=== PATIENT | female | born 1950 | race Caucasian/White ===

== ENCOUNTER 2017-08-05 20:25 | Emergency (ER) | payer MEDICARE, OTHER ==
[~2017-08-05] VITALS: Ht 157.5 cm; Wt 76.6 kg
[~2017-08-05 20:25] MED LIST: CLOP75TA PO; DIPH2.5T14 PO; GLIP1TAB49 PO; HYDR500C2 PO; LANTUS2P; PERC5TAB12 PO; PLAV75TA29 PO; ZOFR4TAB PO
[2017-08-05 20:31] VITALS: BP 124/58; PULSE 86; RESP 16; TEMP 98.6; O2SAT 99
[2017-08-05] MEDS ORDERED: METF500T PO (21:16)
[2017-08-05] MEDS ORDERED: XARE10TA PO (21:16)
[2017-08-05] MEDS ORDERED: oxyCODONE/ACETAMINOPHEN 5 MG/325 MG TAB PO ONE (21:30)
--- NOTE | 2017-08-05 21:43 | RADRPT ---
EXAM DATE/TIME: 08/05/2017 21:19 [facility] COMPARISON: No previous studies available for comparison. INDICATIONS : Fall. Right shoulder pain. Limited motion. MEDICAL HISTORY : None. SURGICAL HISTORY : None. ENCOUNTER: Initial ACUITY: 1 day PAIN SCORE: 7/10 LOCATION: Right scapular FINDINGS: Multiple view examination of the right shoulder demonstrates no evidence of fracture or dislocation. The glenohumeral and acromioclavicular joints are maintained. There is normal range of motion betwe en internal and external rotation. Bony mineralization is normal. CONCLUSION: No acute disease. Kd Butler MD on August 05, 2017 at 21:40 Board Certified Radiologist. This report was verified electronically.
[2017-08-05] MEDS ORDERED: PERC5TAB12 PO (22:04)
--- NOTE | 2017-08-05 22:05 | PD ---
HPI Chief Complaint: Back/ Neck Pain or Injury Time Seen by Provider: 21:03 Travel History International Travel<30 days: No Contact w/Intl Traveler<30days: No Traveled to known affect area: No History of Present Illness HPI 67 yo F c/o R shoulder pain, chronic in nature, no recent injury/excessive use. orthopedic surgery has been suggested. timing constant. severity moderate. no numbness/tingling weakness. PFSH Past Medical History Hx Anticoagulant Therapy: Yes (XARELTO) Arthritis: Yes Asthma: Yes Anxiety: Yes Depression: Yes Heart Rhythm Problems: No Cancer: No Cardiac Catheterization: No Cardiovascular Problems: Yes High Cholesterol: No Chemotherapy: Yes (CHEMO PILLS) Congestive Heart Failure: No Cerebrovascular Accident: Yes (TIA) Diabetes: Yes Patient Takes Glucophage: No Diminished Hearing: No Endocrine: No Gastrointestinal Disorders: No Genitourinary: No Hypertension: Yes Immune Disorder: No Implanted Vascular Access Dvce: No Musculoskeletal: Yes Psychiatric: No Reproductive: No Respiratory: Yes (ASTHMA) Pneumonia: Yes Tetanus Vaccination: > 5 Years Influenza Vaccination: No Menopausal: Yes : 6 Para: 4 Miscarriage: 2 Tubal Ligation: Yes Past Surgical History Abdominal Surgery: Yes (HERNIA REPAIR) Appendectomy: Yes Cholecystectomy: Yes Coronary Artery Bypass Graft: No Genitourinary Surgery: Yes (bladder "pulled up") Gynecologic Surgery: Yes (BLADDER LIFT) Hysterectomy: Yes (partial) Neurologic Surgery: Yes (BRAIN SHUNT FOR 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 BRAIN PER DAUGHTER) Other Surgery: Yes (hernia) Social History Alcohol Use: No Tobacco Use: No Substance Use: No Allergies-Medications (Allergen,Severity, Reaction): Coded Allergies: aspirin (Unverified Allergy, Severe, Nausea/Vomiting, 08/05/17) Reported Meds & Prescriptions Reported Meds & Active Scripts Active Reported Metformin (Metformin HCl) 500 Mg Tab 500 Mg PO BIDPC Xarelto (Rivaroxaban) 10 Mg Tab 10 Mg PO DAILY Plavix (Clopidogrel Bisulfate) 75 Mg Tab 75 Mg PO DAILY Lantus Inj (Insulin Glargine) 100 Unit/Ml Inj 85 DAILY Glipizide ER (Glipizide) 5 Mg Silviano 5 Mg PO DAILY Take with breakfast or first main meal of the day. Review of Systems General / Constitutional: No: Fever Neurologic: No: Weakness, Sensory Disturbance Physical Exam Narrative GENERAL: 67 yo F, WNWD, NAD SKIN: Warm and dry. HEAD: Atraumatic. Normocephalic. EYES: Pupils equal and round. No scleral icterus. No injection or drainage. MUSCULOSKELETAL: Extremities without clubbing, cyanosis, or edema. No obvious deformities. No focal tenderness about the R shoulder. 2+ radial artery pulse bilaterally. Normal passive/active ROM. NEUROLOGICAL: Awake and alert. No obvious cranial nerve deficits. Motor grossly within normal limits. Five out of 5 muscle strength in the arms and legs. Normal speech. PSYCHIATRIC: Appropriate mood and affect; insight and judgment normal. Data Data Last Documented VS Vital Signs Date Time Temp Pulse Resp B/P (MAP) Pulse Ox O2 Delivery O2 Flow Rate FiO2 08/05/17 20:31 98.6 86 16 124/58 (80) 99 VS reviewed Orders Orders ^ Sling (08/05/17 21:13) Shoulder, Complete (>2vws) (08/05/17 ) Oxycodone-Acetamin 5-325 Mg (Percocet (08/05/17 21:30) MDM Medical Decision Making Medical Screen Exam Complete: Yes Emergency Medical Condition: Yes Medical Record Reviewed: Yes Differential Diagnosis septic arthritis, gout, DJD, dislocation, rotator cuff injury Narrative Course R shoulder xray: normal Prior visits for shoulder pain observed. Nonspecific R shoulder pain. Pain controlled here. Sling. Follow up with ortho. Diagnosis Primary Impression: Shoulder pain Qualified Codes: M25.511 - Pain in right shoulder; G89.29 - Other chronic pain Referrals: Gui Guadarrama Jr., MD 2 days Additional Instructions: You have a choice when it comes to health care, and we are glad that you chose [facility]. Hopefully, we have met your expectations on today's visit. You are welcome to return to [facility] at any time, as we are committed to meeting the health care needs of our community. Med/Other Pt SpecificInfo: Prescription(s) given Scripts Oxycodone-Acetaminophen (Percocet) 5-325 mg Tab 1-2 TAB PO Q6H Y for PAIN SCALE 6 TO 10, #20 TAB 0 Refills Prov: Jay Valdes MD 08/05/17 Disposition: 01 DISCHARGE HOME Condition: Stable Jay Valdes MD Aug 05, 2017 22:05
== END 2017-08-05 22:19 | disposition home or self-care (01) ==
LOC: PHED 20:25 → PHEFT 22:19
DX: M25.511 Pain in right shoulder (principal); G89.29 Other chronic pain; J45.909 Unspecified asthma, uncomplicated; F41.9 Anxiety disorder, unspecified; F32.9 Major depressive disorder, single episode, unspecified; Z86.73 Personal history of transient ischemic attack (TIA), and cerebral infarction without residual deficits; E11.9 Type 2 diabetes mellitus without complications; I10 Essential (primary) hypertension; Z79.4 Long term (current) use of insulin; Z79.899 Other long term (current) drug therapy; Z79.01 Long term (current) use of anticoagulants
CPT/HCPCS: 73030; 99283

== ENCOUNTER 2017-08-10 09:56 | Emergency (ER) | payer MEDICARE, MEDICAID ==
[~2017-08-10] VITALS: Ht 157.5 cm; Wt 78.0 kg
[~2017-08-10 09:56] MED LIST changes: -CLOP75TA PO; -DIPH2.5T14 PO; -HYDR500C2 PO; +METF500T PO; +XARE10TA PO; -ZOFR4TAB PO
[2017-08-10 09:59] VITALS: BP 144/82; PULSE 87; RESP 15; TEMP 97.7; O2SAT 96
[2017-08-10] MEDS ORDERED: DILT31TA PO (10:21)
[2017-08-10] MEDS ORDERED: FLEC1TAB8 PO (10:22)
--- NOTE | 2017-08-10 11:23 | PD ---
HPI Chief Complaint: Respiratory Symptoms Time Seen by Provider: 11:12 Travel History International Travel<30 days: No Contact w/Intl Traveler<30days: No Traveled to known affect area: No History of Present Illness HPI This patient complains of shortness of breath. She has history of asthma but been wheezing and short of breath for 3 days. Severity is moderate. She denies chest pain or productive cough or fever. No alleviating factors. She does have nebulizer at home but she did not try to use it today. No alleviating factors. She quit smoking 30 years ago. PFSH Past Medical History Hx Anticoagulant Therapy: Yes (XARELTO) Arthritis: Yes Asthma: Yes Anxiety: Yes Depression: Yes Heart Rhythm Problems: No Cancer: No Cardiac Catheterization: No Cardiovascular Problems: Yes High Cholesterol: No Chemotherapy: Yes (CHEMO PILLS) Congestive Heart Failure: No Cerebrovascular Accident: Yes (TIA) Diabetes: Yes Patient Takes Glucophage: Yes Diminished Hearing: No Endocrine: No Gastrointestinal Disorders: No Genitourinary: No Heparin Induced Thrombocytopen: No Hypertension: Yes Immune Disorder: No Implanted Vascular Access Dvce: No Musculoskeletal: Yes Psychiatric: No Reproductive: No Respiratory: Yes (ASTHMA) Pneumonia: Yes ?: Not Menopausal: Yes : 6 Para: 4 Miscarriage: 2 Tubal Ligation: Yes Past Surgical History Abdominal Surgery: Yes (HERNIA REPAIR) Appendectomy: Yes Cholecystectomy: Yes Coronary Artery Bypass Graft: No Genitourinary Surgery: Yes (bladder "pulled up") Gynecologic Surgery: Yes (BLADDER LIFT) Hysterectomy: Yes (partial) Neurologic Surgery: Yes (BRAIN SHUNT FOR 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 BRAIN PER DAUGHTER) Other Surgery: Yes (hernia) Family History Family Myocardial Infarction: Yes (FATHER AT AGE 58 OF [place] ) Social History Alcohol Use: No Tobacco Use: No Substance Use: No Allergies-Medications (Allergen,Severity, Reaction): Coded Allergies: aspirin (Unverified Allergy, Severe, Nausea/Vomiting, 08/05/17) Reported Meds & Prescriptions Reported Meds & Active Scripts Active Prednisone 20 Mg Tab 40 Mg PO DIRECTED Percocet (Oxycodone-Acetaminophen) 5-325 mg Tab 1-2 Tab PO Q6H PRN Reported Flecainide (Flecainide Acetate) 50 Mg Tab 50 Mg PO BID Cardizem (Diltiazem HCl) 30 Mg Tab 30 Mg PO BID Metformin (Metformin HCl) 500 Mg Tab 500 Mg PO BIDPC Xarelto (Rivaroxaban) 10 Mg Tab 10 Mg PO DAILY Plavix (Clopidogrel Bisulfate) 75 Mg Tab 75 Mg PO DAILY Lantus Inj (Insulin Glargine) 100 Unit/Ml Inj 85 DAILY Glipizide ER (Glipizide) 5 Mg Silviano 5 Mg PO DAILY Take with breakfast or first main meal of the day. Review of Systems General / Constitutional: No: Fever Eyes: No: Visual changes HENT: No: Headaches Cardiovascular: No: Chest Pain or Discomfort Respiratory: Positive: Shortness of Breath, Wheezing Gastrointestinal: No: Abdominal Pain Genitourinary: No: Dysuria Musculoskeletal: No: Pain Skin: No Rash Neurologic: No: Weakness Psychiatric: No: Depression Endocrine: No: Polydipsia Hematologic/Lymphatic: No: Easy Bruising Physical Exam Narrative GENERAL: Well-nourished, well-developed patient with some dyspnea . SKIN: Focused skin assessment reveals no rash and nodules. Skin is Warm and dry. HEAD: Atraumatic. Normocephalic. EYES: Pupils equal and round. No scleral icterus. No injection or drainage. ENT: No nasal bleeding or discharge. Mucous membranes pink and moist. NECK: Trachea midline. No JVD. CARDIOVASCULAR: Regular rate and rhythm. No murmur appreciated. RESPIRATORY: No accessory muscle use. Diffuse expiratory wheezing. Breath sounds equal bilaterally. GASTROINTESTINAL: Abdomen soft, non-tender, nondistended. Hepatic and splenic margins not palpable. MUSCULOSKELETAL: No obvious deformities. No clubbing. No cyanosis. No edema. NEUROLOGICAL: Awake and alert. No obvious cranial nerve deficits. Motor grossly within normal limits. Normal speech. PSYCHIATRIC: Appropriate mood and affect; insight and judgment normal. Data Data Last Documented VS Vital Signs Date Time Temp Pulse Resp B/P (MAP) Pulse Ox O2 Delivery O2 Flow Rate FiO2 08/10/17 11:45 100 Nasal Cannula 2.00 08/10/17 11:39 18 08/10/17 10:13 82 08/10/17 09:59 97.7 Orders Orders Complete Blood Count With Diff (08/10/17 11:17) Influenzae A/B Antigen (08/10/17 11:17) Iv Access Insert/Monitor (08/10/17 11:17) Ecg Monitoring (08/10/17 11:17) Oximetry (08/10/17 11:17) Chest, Single Ap (08/10/17 11:17) Sodium Chloride 0.9% Flush (Ns Flush) (08/10/17 11:30) Methylprednisolone So Succ Inj (Solumedr (08/10/17 11:30) Albuterol-Ipratropium Neb (Duoneb Neb) (08/10/17 11:30) Labs Laboratory Tests Test 08/10/17 11:30 White Blood Count 4.8 TH/MM3 Red Blood Count 3.12 MIL/MM3 Hemoglobin 10.6 GM/DL Hematocrit 32.2 % Mean Corpuscular Volume 103.4 FL Mean Corpuscular Hemoglobin 34.0 PG Mean Corpuscular Hemoglobin Concent 32.9 % Red Cell Distribution Width 17.9 % Platelet Count 484 TH/MM3 Mean Platelet Volume 9.4 FL Neutrophils (%) (Auto) 71.1 % Lymphocytes (%) (Auto) 14.9 % Monocytes (%) (Auto) 10.0 % Eosinophils (%) (Auto) 3.5 % Basophils (%) (Auto) 0.5 % Neutrophils # (Auto) 3.4 TH/MM3 Lymphocytes # (Auto) 0.7 TH/MM3 Monocytes # (Auto) 0.5 TH/MM3 Eosinophils # (Auto) 0.2 TH/MM3 Basophils # (Auto) 0.0 TH/MM3 CBC Comment AUTO DIFF MDM Medical Decision Making Medical Screen Exam Complete: Yes Emergency Medical Condition: Yes Medical Record Reviewed: Yes Differential Diagnosis Asthma, COPD, bronchitis Narrative Course I have reviewed the patient's electronic medical record. IV placed CBC shows minor anemia otherwise normal I reviewed her chest x-ray is negative for consolidation or pneumothorax I gave her series of 3 nebulizer treatments I gave her IV Solu-Medrol On reassessment she is clinically improved. There is less wheezing and saturations are at 100% Accu-Chek 224 She is an insulin-dependent diabetic She is aware she may need to increase her insulin or more closely watch her sugars for the next 5 days while on steroid but for her lung function this will be necessary Diagnosis Primary Impression: Asthma exacerbation Qualified Codes: J45.41 - Moderate persistent asthma with (acute) exacerbation Additional Impression: Hyperglycemia Additional Instructions: The patient was advised to follow up with their physician and return if they worsen. Check sugar frequently while on prednisone Med/Other Pt SpecificInfo: Prescription(s) given Scripts Prednisone (Prednisone) 20 Mg Tab 40 MG PO DIRECTED, #10 TAB 0 Refills Prov: Sheldon Zuñiga MD 08/10/17 Disposition: 01 DISCHARGE HOME Condition: Stable Sheldon Zuñiga MD Aug 10, 2017 11:23
[2017-08-10] MEDS ORDERED: SODIUM CHLORIDE 0.9% FLUSH 10 ML FLUSH IVF PRN (11:30)
[2017-08-10] MEDS ORDERED: methylPREDNISolone SOD SUCC 125 MG/2 ML VIAL IV PUSH ONE (11:30)
[2017-08-10 11:39] VITALS: RESP 18; O2SAT 98
[2017-08-10] MEDS: RESP: ALBUTEROL 2.5 MG/IPRATROPIUM 0.5 MG NEB (SCH) INH ×2 (11:44→11:45)
[2017-08-10 11:45] VITALS: O2SAT 100
[2017-08-10 11:54] LABS: AUTOMATED NEUTROPHIL # 3.4 TH/MM3 (1.8-7.7); BASOPHIL % 0.5 % (0.0-2.0); EOSINOPHIL # 0.2 TH/MM3 (0-0.4); EOSINOPHIL % 3.5 % (0.0-4.0); HEMATOCRIT 32.2 % (35.0-46.0); LYMPH % 14.9 % (9.0-44.0); LYMPHOCYTE # 0.7 TH/MM3 (1.0-4.8); MEAN CELL VOLUME 103.4 FL (80.0-100.0); MEAN CORPUSCULAR HGB CONC 32.9 % (32.0-36.0); NEUT % 71.1 % (16.0-70.0); PLATELET COUNT 484 TH/MM3 (150-450); RED BLOOD COUNT 3.12 MIL/MM3 (4.00-5.30); RED CELL DISTRIBUTION WIDTH 17.9 % (11.6-17.2); WHITE BLOOD COUNT 4.8 TH/MM3 (4.0-11.0)
--- NOTE | 2017-08-10 11:59 | RADRPT ---
EXAM DATE/TIME: 08/10/2017 11:43 [facility] COMPARISON: CHEST SINGLE AP, July 04, 2016, 16:30. INDICATIONS : Shortness of breath and cough. MEDICAL HISTORY : Hypertension. Diabetes mellitus type II. Asthma. SURGICAL HISTORY : Shunt. ENCOUNTER: Initial ACUITY: 2 days PAIN SCORE: 0/10 LOCATION: Bilateral chest FINDINGS: Portable AP views of the chest demonstrate normal-sized cardiac silhouette. MACHINE BOSS shunt tubing overlies the left chest. Lungs are underinflated. No effusion, consolidation, or pneumothorax is visualized. T he bones and soft tissues demonstrate no acute finding. CONCLUSION: No acute cardiopulmonary abnormality is identified. Pilo Blair MD on August 10, 2017 at 11:57 Board Certified Radiologist. This report was verified electronically.
[2017-08-10 12:04] LABS: HEMO FLAGS AUTO DIFF
[2017-08-10] MEDS ORDERED: PRED20 PO (12:58)
[2017-08-10 13:08] LABS: BANDS 3 % (0-6); BASOPHILS 1 % (0-2); BLASTS 2 % (0-0); CORRECTED NUCLEATED RBC 2 /100 WBC (0-0); EOSINOPHILS 4 % (0-4); MYELOCYTES 1 % (0-0); NEUTROPHIL # MANUAL DIFF 3.6 TH/MM3 (1.8-7.7); POLYS (SEG NEUTROPHILS) 72 % (16-70); WBC DIFF SAMPLE 100
[2017-08-10 13:09] LABS: OVALOCYTES 2+ (NORMAL); TEARDROP RBCS 1+ (NORMAL)
[2017-08-10 13:10] LABS: HELMET CELLS OCC (NORMAL); PLATELET ESTIMATE SMEAR HIGH (NORMAL); PLATELET MORPHOLOGY ENLARGED (NORMAL)
[2017-08-10 13:11] LABS: TOXIC GRANULATION 1+ (NORMAL)
[2017-08-10 13:12] LABS: SCAN/DIFF FINAL DIFF MANUAL
--- NOTE | 2017-08-10 21:13 | EKG ---
Date Performed: 08/10/2017 Time Performed: 10:39:37 PTAGE: 67 years EKG: Sinus rhythm NORMAL ECG PREVIOUS TRACING : 08/27/2015 05.50 compared with previous EKG no significant change DOCTOR: Elder Harvey Interpretating Date/Time 08/10/2017 21:11:17
== END 2017-08-10 13:42 | disposition home or self-care (01) ==
LOC: NEPE 09:56
DX: J45.41 Moderate persistent asthma with (acute) exacerbation (principal); E11.65 Type 2 diabetes mellitus with hyperglycemia; Z79.4 Long term (current) use of insulin
CPT/HCPCS: 71010; 85007; 85027; 87804; 93005; 94664; 96374; 99284; J2930

== ENCOUNTER 2017-08-14 10:56 | Inpatient (IN) | payer MEDICARE, MEDICAID ==
[~2017-08-14] VITALS: Ht 157.5 cm; Wt 75.1 kg
[2017-08-14] VITALS (8 sets, daily range): BP systolic 129–156; BP diastolic 66–89; PULSE 77–106; RESP 16–20; TEMP 97.4–98.6; O2SAT 93–98
[~2017-08-14 10:56] MED LIST changes: +DILT31TA PO; +FLEC1TAB8 PO; +PRED20 PO
--- NOTE | 2017-08-14 12:26 | PD ---
HPI Chief Complaint: Respiratory Symptoms Time Seen by Provider: 12:12 Travel History International Travel<30 days: No Contact w/Intl Traveler<30days: No Traveled to known affect area: No History of Present Illness HPI This 67-year-old female is complaining of shortness of breath. She has a history of asthma Put on increasing dose of prednisone. She had been on prednisone when she had presented here. She says she does not feel any better. She continues to be short of breath. She has not smoked for 25 years. She has a history of diabetes for 5-6 years. She has a history of thrombocytosis and has had a stroke in the past. She is currently on Xarelto and Plavix. She is on hydroxyurea because of her high platelets. She was seen in the emergency department on August 10 and given steroid pack in addition to nebulizer treatments. PFSH Past Medical History Hx Anticoagulant Therapy: Yes (XARELTO) Arthritis: Yes Asthma: Yes Anxiety: Yes Depression: Yes Heart Rhythm Problems: No Cancer: No Cardiac Catheterization: No Cardiovascular Problems: Yes (abnormal heart beat) High Cholesterol: No Chemotherapy: Yes (CHEMO PILLS) Congestive Heart Failure: No Cerebrovascular Accident: Yes Diabetes: Yes Diminished Hearing: No Endocrine: No Gastrointestinal Disorders: No Genitourinary: No Heparin Induced Thrombocytopen: No Hypertension: Yes Immune Disorder: No Implanted Vascular Access Dvce: No Musculoskeletal: Yes Psychiatric: No Reproductive: No Respiratory: Yes (ASTHMA) Pneumonia: Yes ?: Not Menopausal: Yes : 6 Para: 4 Miscarriage: 2 Tubal Ligation: Yes Past Surgical History Abdominal Surgery: Yes (HERNIA REPAIR) Appendectomy: Yes Cholecystectomy: Yes Coronary Artery Bypass Graft: No Genitourinary Surgery: Yes (bladder "pulled up") Gynecologic Surgery: Yes (BLADDER LIFT) Hysterectomy: Yes (partial) Neurologic Surgery: Yes (BRAIN SHUNT FOR 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 BRAIN PER DAUGHTER) Other Surgery: Yes (hernia) Social History Alcohol Use: No Tobacco Use: No Substance Use: No Allergies-Medications (Allergen,Severity, Reaction): Coded Allergies: aspirin (Unverified Allergy, Severe, Nausea/Vomiting, 08/05/17) Reported Meds & Prescriptions Reported Meds & Active Scripts Active Prednisone 20 Mg Tab 40 Mg PO DIRECTED Percocet (Oxycodone-Acetaminophen) 5-325 mg Tab 1-2 Tab PO Q6H PRN Reported Janumet (Sitagliptin-Metformin) 50-500 Mg Tab 1 Tab PO BID Hydrea (Hydroxyurea) 500 Mg Cap 500 Mg PO DAILY Ambien (Zolpidem Tartrate) 5 Mg Tab 5 Mg PO HS PRN Flecainide (Flecainide Acetate) 50 Mg Tab 50 Mg PO BID Xarelto (Rivaroxaban) 10 Mg Tab 10 Mg PO DAILY Plavix (Clopidogrel Bisulfate) 75 Mg Tab 75 Mg PO DAILY Lantus Inj (Insulin Glargine) 100 Unit/Ml Inj 85 HS Review of Systems General / Constitutional: No: Fever, Chills Eyes: No: Diploplia, Blurred Vision HENT: No: Headaches Cardiovascular: No: Chest Pain or Discomfort Respiratory: Positive: Cough, Shortness of Breath Gastrointestinal: No: Nausea, Vomiting Genitourinary: No: Urgency, Frequency Musculoskeletal: No: Myalgias Skin: No Rash, No Itching Neurologic: No: Weakness Hematologic/Lymphatic: No: Easy Bruising Physical Exam Narrative GENERAL: Well-developed female SKIN: Focused skin assessment warm/dry. HEAD: Atraumatic. Normocephalic. EYES: Pupils equal and round. No scleral icterus. No injection or drainage. ENT: No nasal bleeding or discharge. Mucous membranes pink and moist. NECK: Trachea midline. No JVD. CARDIOVASCULAR: Regular rate and rhythm. No murmur appreciated. RESPIRATORY: No accessory muscle use. Bilateral wheezes Breath sounds equal bilaterally. GASTROINTESTINAL: Abdomen soft, non-tender, nondistended. Hepatic and splenic margins not palpable. MUSCULOSKELETAL: No obvious deformities. No clubbing. No cyanosis. No edema. NEUROLOGICAL: Awake and alert. No obvious cranial nerve deficits. Motor grossly within normal limits. Normal speech. PSYCHIATRIC: Appropriate mood and affect; insight and judgment normal. Data Data Last Documented VS Vital Signs Date Time Temp Pulse Resp B/P (MAP) Pulse Ox O2 Delivery O2 Flow Rate FiO2 08/14/17 14:48 Room Air 08/14/17 14:48 82 20 130/66 (87) 98 08/14/17 11:54 98.6 Orders Orders Electrocardiogram (08/14/17 12:23) Complete Blood Count With Diff (08/14/17 12:23) Comprehensive Metabolic Panel (08/14/17 12:23) Troponin I (08/14/17 12:23) B-Type Natriuretic Peptide (08/14/17 12:23) Ua Includes Microscopic (08/14/17 12:23) Influenzae A/B Antigen (08/14/17 12:23) Iv Access Insert/Monitor (08/14/17 12:23) Ecg Monitoring (08/14/17 12:23) Oximetry (08/14/17 12:23) Oxygen Administration (08/14/17 12:23) Chest, Single Ap (08/14/17 12:23) Sodium Chloride 0.9% Flush (Ns Flush) (08/14/17 12:30) Methylprednisolone So Succ Inj (Solumedr (08/14/17 12:30) Albuterol-Ipratropium Neb (Duoneb Neb) (08/14/17 12:30) Ct Pulmonary Angiogram (08/14/17 13:47) Iohexol 350 Inj (Omnipaque 350 Inj) (08/14/17 14:32) Admit Order (Ed Use Only) (08/14/17 15:04) Labs Laboratory Tests Test 08/14/17 12:55 08/14/17 14:40 White Blood Count 7.4 TH/MM3 Red Blood Count 3.22 MIL/MM3 Hemoglobin 10.3 GM/DL Hematocrit 32.0 % Mean Corpuscular Volume 99.3 FL Mean Corpuscular Hemoglobin 32.0 PG Mean Corpuscular Hemoglobin Concent 32.2 % Red Cell Distribution Width 17.6 % Platelet Count 680 TH/MM3 Mean Platelet Volume 8.6 FL CBC Comment AUTO DIFF Differential Total Cells Counted 100 Neutrophils % (Manual) 71 % Band Neutrophils % 4 % Lymphocytes % 16 % Monocytes % 5 % Eosinophils % 2 % Neutrophils # (Manual) 5.6 TH/MM3 Metamyelocytes 1 % Nucleated Red Blood Cells 1 /100 WBC Differential Comment FINAL DIFF MANUAL Blastocytes 1 % Toxic Granulation 1+ Platelet Estimate HIGH Platelet Morphology Comment NORMAL Basophilic Stippling MOD Ovalocytes 1+ Rouleau PRESENT Blood Urea Nitrogen 12 MG/DL Creatinine 0.52 MG/DL Random Glucose 225 MG/DL Total Protein 7.4 GM/DL Albumin 3.9 GM/DL Calcium Level 8.3 MG/DL Alkaline Phosphatase 69 U/L Aspartate Amino Transf (AST/SGOT) 34 U/L Alanine Aminotransferase (ALT/SGPT) 42 U/L Total Bilirubin 1.1 MG/DL Sodium Level 135 MEQ/L Potassium Level 4.0 MEQ/L Chloride Level 101 MEQ/L Carbon Dioxide Level 26.6 MEQ/L Anion Gap 7 MEQ/L Estimat Glomerular Filtration Rate 117 ML/MIN Troponin I LESS THAN 0.02 NG/ML B-Type Natriuretic Peptide 47 PG/ML MDM Medical Decision Making Medical Screen Exam Complete: Yes Emergency Medical Condition: Yes Medical Record Reviewed: Yes Differential Diagnosis Differential includes pneumonia, asthma exacerbation, Narrative Course Patient has been given repeated nebulizer treatments with minimal change. Repeat examination shows persistent bilateral wheezing. Chest x-ray has been read as negative. A CTA has been ordered to assess for PE or other abnormality. Repeat examination shows persistent bilateral wheezing. Patient has failed outpatient treatment Diagnosis Primary Impression: Asthma exacerbation Disposition: DISCHARGE HOME Condition: Stable Abhi Moseley MD Aug 14, 2017 12:26
[2017-08-14] MEDS ORDERED: methylPREDNISolone SOD SUCC 125 MG/2 ML VIAL IV PUSH ONE (12:30)
[2017-08-14] MEDS ORDERED: SODIUM CHLORIDE 0.9% FLUSH 10 ML FLUSH IVF PRN (12:30)
[2017-08-14] MEDS: RESP: ALBUTEROL 2.5 MG/IPRATROPIUM 0.5 MG NEB (SCH) INH (12:39)
[2017-08-14 13:08] LABS: MEAN CELL VOLUME 99.3 FL (80.0-100.0); MEAN CORPUSCULAR HGB CONC 32.2 % (32.0-36.0); PLATELET COUNT 680 TH/MM3 (150-450); RED BLOOD COUNT 3.22 MIL/MM3 (4.00-5.30); RED CELL DISTRIBUTION WIDTH 17.6 % (11.6-17.2); WHITE BLOOD COUNT 7.4 TH/MM3 (4.0-11.0)
[2017-08-14 13:10] LABS: HEMO FLAGS AUTO DIFF
[2017-08-14 13:20] LABS: CHLORIDE 101 MEQ/L (98-107); SODIUM (NA) 135 MEQ/L (136-145)
[2017-08-14 13:24] LABS: ANION GAP 7 MEQ/L (5-15); BICARBONATE 26.6 MEQ/L (21.0-32.0); BLOOD UREA NITROGEN 12 MG/DL (7-18)
[2017-08-14 13:27] LABS: ALT (GPT) 42 U/L (10-53); AST (GOT) 34 U/L (15-37)
[2017-08-14 13:28] LABS: GLOMERULAR FILTRATION RATE 117 ML/MIN (>89)
[2017-08-14 13:29] LABS: TOTAL BILIRUBIN ADULT 1.1 MG/DL (0.2-1.0)
[2017-08-14 13:30] LABS: ALKALINE PHOSPHATASE 69 U/L (45-117)
--- NOTE | 2017-08-14 13:38 | RADRPT ---
EXAM DATE/TIME: 08/14/2017 13:18 [facility] COMPARISON: CHEST SINGLE AP, August 10, 2017, 11:43. INDICATIONS : Short of breath and cough for 4 days. MEDICAL HISTORY : Hypertension. Diabetes mellitus type II. Asthma. SURGICAL HISTORY : Shunt. ENCOUNTER: Initial ACUITY: 4 - 6 days PAIN SCORE: 2/10 LOCATION: Bilateral chest FINDINGS: A single view of the chest demonstrates the lungs to be symmetrically aerated without evidence of mas s, infiltrate or effusion. The cardiomediastinal contours are unremarkable. Osseous structures are intact. Shunt tubing courses across the left chest. CONCLUSION: The lungs are clear. No infiltrates seen. Sam Campbell MD on August 14, 2017 at 13:36 Board Certified Radiologist. This report was verified electronically.
[2017-08-14 13:40] LABS: BANDS 4 % (0-6); BLASTS 1 % (0-0); CORRECTED NUCLEATED RBC 1 /100 WBC (0-0); EOSINOPHILS 2 % (0-4); METAMYELOCYTES 1 % (0-1); NEUTROPHIL # MANUAL DIFF 5.6 TH/MM3 (1.8-7.7); OVALOCYTES 1+ (NORMAL); POLYS (SEG NEUTROPHILS) 71 % (16-70); ROULEAUX PRESENT (NORMAL); WBC DIFF SAMPLE 100
[2017-08-14] MEDS ORDERED: JANU50TA4 PO (13:40)
[2017-08-14] MEDS ORDERED: HYDR500C PO (13:40)
[2017-08-14] MEDS ORDERED: AMBI5TAB PO (13:40)
[2017-08-14 13:41] LABS: PLATELET ESTIMATE SMEAR HIGH (NORMAL); PLATELET MORPHOLOGY NORMAL (NORMAL); SCAN/DIFF FINAL DIFF MANUAL; TOXIC GRANULATION 1+ (NORMAL)
[2017-08-14] MEDS ORDERED: METFORMIN HOLD POST IV CONTRAST SCH (14:25)
[2017-08-14] MEDS ORDERED: IOHEXOL 350 MG/ML 10 ML VIAL (for RAD DIAG) IVCONTRAST ONE (14:32)
[2017-08-14 15:16] LABS: BLOOD, URINE NEG (NEG); GLUCOSE,URINE 500 mg/dL (NEG); KETONE, URINE NEG (NEG); NITRITE,URINE NEG (NEG)
--- NOTE | 2017-08-14 15:29 | RADRPT ---
EXAM DATE/TIME: 08/14/2017 14:22 [facility] COMPARISON: No previous studies available for comparison. INDICATIONS : Short of breath. Evaluate for embolism. IV CONTRAST: 65 cc Omnipaque 350 (iohexol) IV RADIATION DOSE: 18.35 CTDIvol (mGy) MEDICAL HISTORY : Cerebrovascular disease. Hypertension. Diabetes. Brain tumor removed. SURGICAL HISTORY : Appendectomy. Cholecystectomy.Hysterectomy.Bladder surgery. Hernia repair. Brain shunt. ENCOUNTER: Initial ACUITY: 4 - 6 days PAIN SCALE: 0/10 LOCATION: chest TECHNIQUE: Volumetric scanning of the chest was performed using a pulmonary embolism protocol MIP images were re constructed. Using automated exposure control and adjustment of the mA and/or kV according to patien t size, radiation dose was kept as low as reasonably achievable to obtain optimal diagnostic quality images. DICOM format image data is available electronically for review and comparison. Follow-up recommendations for detected pulmonary nodules are based at a minimum on nodule size and pa tient risk factors according to Fleischner Society Guidelines. FINDINGS: PULMONARY ARTERIES: No filling defects are seen in the pulmonary arteries through the segmental level. LUNGS: There is no consolidation or pneumothorax . No concerning pulmonary nodule is visualized. PLEURAE: There is no pleural thickening or pleural effusion. MEDIASTINUM: There is good visualization of the great vessels of the middle mediastinum. No evidence of mediastin al or hilar adenopathy/mass. Coronary artery calcifications. CONCLUSION: The study is negative for pulmonary embolism. Sam Campbell MD on August 14, 2017 at 15:24 Board Certified Radiologist. This report was verified electronically.
[2017-08-14 15:36] LABS: METHOD OF COLLECTION VOIDED; SQUAMOUS EPITHELIAL CELL URINE 0-3 /hpf (0-5); URINE COLOR YELLOW (YELLW/STRAW); WBC, URINE 0-2 /hpf (0-5)
[2017-08-14] MEDS ORDERED: PILL SPLITTER OTHER PRN (15:45)
[2017-08-14] MEDS ORDERED: ACETAMINOPHEN 325 MG TAB PO PRN ×2 (15:45)
[2017-08-14] MEDS ORDERED: NALOXONE HCL 0.4 MG/ML AMP IV PUSH PRN (15:45)
[2017-08-14] MEDS ORDERED: ONDANSETRON HCL 4 MG/2 ML VIAL IVP PRN (15:45)
[2017-08-14] MEDS ORDERED: SODIUM CHLORIDE 0.9% FLUSH 10 ML FLUSH IV FLUSH PRN (15:45)
[2017-08-14] MEDS ORDERED: ENOXAPARIN SODIUM 40 MG/0.4 ML SYRINGE SQ SCH (16:00)
--- NOTE | 2017-08-14 16:39 | HHI.HP ---
[facility] Service [facility] Primary Care Physician German Alfaro MD Admission Diagnosis ASTHMA EXACERBATION Diagnoses: (1) Asthma exacerbation Diagnosis: Principal Chief Complaint: Shortness of breath, dyspnea, cough Travel History International Travel<30 Days: No Contact w/Intl Traveler <30 Da: No Traveled to Known Affected Are: No History of Present Illness Written by Sheldon Hastings, acting as scribe for Dr. Patel on 08/14/17 at 16 :31. 67-year-old female with known history of hypertension, hyperlipidemia, history of CVA, asthma who presented to hospital because of shortness breath, cough, congestion. Patient states that her symptoms started a month ago and she had been using her inhalers and nebulizer at home without any significant improvement. She went to her primary medical doctor's office one week ago and was started on prednisone and told to continue her nebulizer treatments. Patient did not improve so she came went to the emergency department on 08/10/17 , during the stay the patient was given 3 nebulizer treatments, IV Solu-Medrol with improvement of her respiratory status. She was discharged home on prednisone and follow-up with her primary medical doctor. Patient states that she did not improve and she continued to have short of breath, dyspnea so she came back to the hospital for evaluation. Patient had workup done by emergency room physician who gave the patient 3 nebulizer treatments without any significant improvement of her wheezing. Because she didn't respond to ER treatment is recommended by ER physician that she be admitted for further evaluation and management. Patient states that she has had wheezing over the last month. She has had a cough with green phlegm production. She denies any chest pain, nausea, vomiting, diaphoresis, abdominal pain, diarrhea, constipation. Review of Systems Respiratory: COMPLAINS OF: Cough, Sputum production, Shortness of breath Except as stated in HPI: all other systems reviewed are Neg Past Family Social History Past Medical History Hypertension Hyperlipidemia Asthma Diabetes History of CVA Thrombocytosis History of brain tumor with resection Past Surgical History WELFARE MANAGER shunt Abdominal hernia repair Tubal ligation Appendectomy Cholecystectomy Bladder lift CVA with right sided weakness Reported Medications Reported Meds & Active Scripts Active Prednisone 20 Mg Tab 40 Mg PO DIRECTED Percocet (Oxycodone-Acetaminophen) 5-325 mg Tab 1-2 Tab PO Q6H PRN Reported Janumet (Sitagliptin-Metformin) 50-500 Mg Tab 1 Tab PO BID Hydrea (Hydroxyurea) 500 Mg Cap 500 Mg PO DAILY Ambien (Zolpidem Tartrate) 5 Mg Tab 5 Mg PO HS PRN Flecainide (Flecainide Acetate) 50 Mg Tab 50 Mg PO BID Xarelto (Rivaroxaban) 10 Mg Tab 10 Mg PO DAILY Plavix (Clopidogrel Bisulfate) 75 Mg Tab 75 Mg PO DAILY Lantus Inj (Insulin Glargine) 100 Unit/Ml Inj 85 HS Allergies: Coded Allergies: aspirin (Unverified Allergy, Severe, Nausea/Vomiting, 08/05/17) Family History Reviewed is significant for mother from liver disease and cancer, father from heart disease Social History Patient states that she quit smoking 25 years ago, prior to that she smoked a pack a cigarettes a day since she was 12 years old. Patient denies any alcohol or illicit drugs Physical Exam Vital Signs Vital Signs Date Time Temp Pulse Resp B/P (MAP) Pulse Ox O2 Delivery O2 Flow Rate FiO2 08/14/17 16:11 96 21 08/14/17 14:48 Room Air 08/14/17 14:48 82 20 130/66 (87) 98 Room Air 08/14/17 13:17 86 20 141/67 (91) 98 Room Air 08/14/17 12:44 Room Air 08/14/17 12:44 99 Room Air 08/14/17 12:14 20 100 Room Air 08/14/17 11:54 98.6 84 16 139/69 (92) 98 Physical Exam GENERAL: Well-developed, well-nourished, in no acute distress. alert and orientated HEENT: Head is normocephalic without any lesions or masses noted. Facial features are symmetric. Eyes: Pupils equal round reactive to light. Extraocular muscles are intact. Conjunctivae were clear. Oropharyngeal: Pharynx without any erythema edema. Tongue is midline without deviation. Buccal mucosa is moist without any masses or lesions NECK: Supple without any masses. Trachea midline no deviation. No JVD, no bruits are appreciated CARDIAC: Regular rhythm, regular rate. S1/S2 are heard. No murmurs gallops or rubs. LUNGS: Clear to auscultation bilaterally. Coarse wheeze noted bilaterally and throughout. No rhonchi or rales. No use of accessory muscles on inspiration or expiration. ABDOMEN: Soft, nontender. Nondistended. Bowel sounds heard in all 4 quadrants. No organomegaly or masses. Negative rebound, negative guarding EXTREMITIES: No edema, pulses are equal bilaterally. No cyanosis or clubbing NEUROLOGY: Mood and affect appear appropriate. Cranial nerves II through XII grossly intact. Weakness noted in right extremities. Laboratory Laboratory Tests Test 08/14/17 12:55 08/14/17 14:40 White Blood Count 7.4 Red Blood Count 3.22 Hemoglobin 10.3 Hematocrit 32.0 Mean Corpuscular Volume 99.3 Mean Corpuscular Hemoglobin 32.0 Mean Corpuscular Hemoglobin Concent 32.2 Red Cell Distribution Width 17.6 Platelet Count 680 Mean Platelet Volume 8.6 CBC Comment AUTO DIFF Differential Total Cells Counted 100 Neutrophils % (Manual) 71 Band Neutrophils % 4 Lymphocytes % 16 Monocytes % 5 Eosinophils % 2 Neutrophils # (Manual) 5.6 Metamyelocytes 1 Nucleated Red Blood Cells 1 Differential Comment FINAL DIFF MANUAL Blastocytes 1 Toxic Granulation 1+ Platelet Estimate HIGH Platelet Morphology Comment NORMAL Basophilic Stippling MOD Ovalocytes 1+ Rouleau PRESENT Blood Urea Nitrogen 12 Creatinine 0.52 Random Glucose 225 Total Protein 7.4 Albumin 3.9 Calcium Level 8.3 Alkaline Phosphatase 69 Aspartate Amino Transf (AST/SGOT) 34 Alanine Aminotransferase (ALT/SGPT) 42 Total Bilirubin 1.1 Sodium Level 135 Potassium Level 4.0 Chloride Level 101 Carbon Dioxide Level 26.6 Anion Gap 7 Estimat Glomerular Filtration Rate 117 Troponin I LESS THAN 0.02 B-Type Natriuretic Peptide 47 Urine Collection Type VOIDED Urine Color YELLOW Urine Turbidity CLEAR Urine pH 6.0 Urine Specific [place] 1.030 Urine Protein NEG Urine Glucose (UA) 500 Urine Ketones NEG Urine Occult Blood NEG Urine Nitrite NEG Urine Bilirubin NEG Urine Leukocyte Esterase NEG Urine WBC 0-2 Urine Squamous Epithelial Cells 0-3 Microscopic Urinalysis Comment Date/Time Source Procedure Growth Status 08/14/17 13:10 Nasal Aspirate Influenza Types A,B Antigen (FABBY) - Final NEGATIVE FOR FLU A AND B ANTIGEN.... Complete Result Diagram: 08/14/17 1255 08/14/17 [address] Angiography 08/14/17 1347 Signed Impressions: Service Date/Time: Monday, August 14, 2017 14:22 - CONCLUSION: The study is negative for pulmonary embolism. Sam Campbell MD Chest X-Ray 08/14/17 1223 Signed Impressions: Service Date/Time: Monday, August 14, 2017 13:18 - CONCLUSION: The lungs are clear. No infiltrates seen. Sam Campbell MD Caprini VTE Risk Assessment Caprini VTE Risk Assessment: Mod/High Risk (score >= 2) Caprini Risk Assessment Model Point Value = 1 Point Value = 2 Point Value = 3 Point Value = 5 Age 41-60 Minor surgery BMI > 25 kg/m2 Swollen legs Varicose veins or History of unexplained or recurrent spontaneous Oral contraceptives or hormone replacement Sepsis (< 1 month) Serious lung disease, including pneumonia (< 1 month) Abnormal pulmonary function Acute myocardial infarction Congestive heart failure (< 1 month) History of inflammatory bowel disease Medical patient at bed rest Age 61-74 Arthroscopic surgery Major open surgery (> 45 min) Laparoscopic surgery (> 45 min) Malignancy Confined to bed (> 72 hours) Immobilizing plaster cast Central venous access Age >= 75 History of VTE Family history of VTE Factor V Leiden Prothrombin [id number] Lupus anticoagulant Anticardiolipin antibodies Elevated serum homocysteine Heparin-induced thrombocytopenia Other congenital or acquired thrombophilia Stroke (< 1 month) Elective arthroplasty Hip, pelvis, or leg fracture Acute spinal cord injury (< 1 month) Prophylaxis Regimen Total Risk Factor Score Risk Level Prophylaxis Regimen 0-1 Low Early ambulation 2 Moderate Order ONE of the following: *Sequential Compression Device (SCD) *Heparin 5000 units SQ BID 3-4 Higher Order ONE of the following medications: *Heparin 5000 units SQ TID *Enoxaparin/Lovenox 40 mg SQ daily (WT < 150 kg, CrCl > 30 mL/min) *Enoxaparin/Lovenox 30 mg SQ daily (WT < 150 kg, CrCl > 10-29 mL/min) *Enoxaparin/Lovenox 30 mg SQ BID (WT < 150 kg, CrCl > 30 mL/min) AND/OR *Sequential Compression Device (SCD) 5 or more Highest Order ONE of the following medications: *Heparin 5000 units SQ TID (Preferred with Epidurals) *Enoxaparin/Lovenox 40 mg SQ daily (WT < 150 kg, CrCl > 30 mL/min) *Enoxaparin/Lovenox 30 mg SQ daily (WT < 150 kg, CrCl > 10-29 mL/min) *Enoxaparin/Lovenox 30 mg SQ BID (WT < 150 kg, CrCl > 30 mL/min) AND *Sequential Compression Device (SCD) Assessment and Plan Assessment and Plan Asthmatic bronchitis with acute exacerbation Continue duo nebs Continue Solu-Medrol 40 mg IV every 8 hours Obtain sputum culture Start Robitussin-AC Influenza testing is negative - encourage ambulation - consult pulmonology. Diabetes Anticipate glucose to worsen with use of steroids Accu-Cheks with sliding scale insulin - adjust regimen as needed History of CVA Continue Xarelto, Plavix Monitor platelet count - PT/ OT Thrombocytosis The pt follows with hematology. - continue hydroxyurea. DVT prevention Subcutaneous Lovenox Physician Certification 2 Midnight Certification Type: Admission for Inpatient Services Order for Inpatient Services The services are ordered in accordance with Medicare regulations or non- Medicare payer requirements, as applicable. In the case of services not specified as inpatient-only, they are appropriately provided as inpatient services in accordance with the 2-midnight benchmark. Estimated LOS (days): 3 days is the estimated time the patient will need to remain in the hospital, assuming treatment plan goals are met and no additional complications. Post-Hospital Plan: Not yet determined Notes: This note was transcribed by virgilio [email or web address]. I, Dr. Thee Patel personally performed the history, physical exam, and medical decision making; and confirmed the accuracy of the information in the transcribed note. Authenticated by Dr. Thee Patel on 08/14/17 at 18:00. Sheldon Hastings Aug 14, 2017 16:39 Thee Patel DO Aug 14, 2017 18:00
[2017-08-14] MEDS: RESP: ALBUTEROL 2.5 MG/IPRATROPIUM 0.5 MG NEB (SCH) NEB (19:58)
[2017-08-14] MEDS: FLECAINIDE ACETATE 100 MG TAB PO SCH (20:38)
[2017-08-14] MEDS: methylPREDNISolone SOD SUCC 40 MG/1 ML VIAL IV PUSH SCH (20:39)
[2017-08-14] MEDS: DOCUSATE SODIUM 50 MG/SENNA 8.6 MG TAB PO SCH (20:40)
[2017-08-14] MEDS: INSULIN ASPART SUPPLEMENTAL SCALE SQ SCH (20:40)
[2017-08-14] MEDS: SODIUM CHLORIDE 0.9% FLUSH 10 ML FLUSH IV FLUSH SCH (20:40)
[2017-08-14] MEDS: ZOLPIDEM TARTRATE 5 MG TAB PO PRN (20:48)
--- NOTE | 2017-08-14 22:08 | EKG ---
Date Performed: 08/14/2017 Time Performed: 12:53:26 PTAGE: 67 years EKG: Sinus rhythm NORMAL ECG PREVIOUS TRACING : 08/10/2017 10.39 Compared to prior tracing no significant change DOCTOR: [place] Interpretating Date/Time 08/14/2017 22:06:58
[2017-08-14] MEDS: RESP: ALBUTEROL 2.5 MG/IPRATROPIUM 0.5 MG NEB (PRN) NEB (23:47)
[2017-08-15] VITALS (7 sets, daily range): BP systolic 121–149; BP diastolic 74–91; PULSE 85–98; RESP 18–20; TEMP 97.3–99.3; O2SAT 94–97
[2017-08-15] MEDS: RESP: ALBUTEROL 2.5 MG/IPRATROPIUM 0.5 MG NEB (PRN) NEB (04:18)
[2017-08-15] MEDS: methylPREDNISolone SOD SUCC 40 MG/1 ML VIAL IV PUSH SCH ×3 (04:42→22:43)
[2017-08-15 06:40] LABS: HEMATOCRIT 31.5 % (35.0-46.0); MEAN CELL VOLUME 100.1 FL (80.0-100.0); MEAN CORPUSCULAR HEMOGLOBIN 31.8 PG (27.0-34.0); MEAN CORPUSCULAR HGB CONC 31.8 % (32.0-36.0); PLATELET COUNT 537 TH/MM3 (150-450); RED BLOOD COUNT 3.15 MIL/MM3 (4.00-5.30); WHITE BLOOD COUNT 13.5 TH/MM3 (4.0-11.0)
[2017-08-15 06:49] LABS: CHLORIDE 99 MEQ/L (98-107); SODIUM (NA) 135 MEQ/L (136-145)
[2017-08-15 06:57] LABS: ANION GAP 11 MEQ/L (5-15); BICARBONATE 24.7 MEQ/L (21.0-32.0)
[2017-08-15 07:00] LABS: HEMO FLAGS AUTO DIFF
[2017-08-15 07:08] LABS: ALKALINE PHOSPHATASE 65 U/L (45-117); ALT (GPT) 37 U/L (10-53); AST (GOT) 19 U/L (15-37); BLOOD UREA NITROGEN 14 MG/DL (7-18); GLOMERULAR FILTRATION RATE 108 ML/MIN (>89); TOTAL BILIRUBIN ADULT 1.3 MG/DL (0.2-1.0)
[2017-08-15] MEDS: RESP: ALBUTEROL 2.5 MG/IPRATROPIUM 0.5 MG NEB (SCH) NEB ×3 (07:27→21:51)
[2017-08-15 07:44] LABS: BANDS 5 % (0-6); METAMYELOCYTES 4 % (0-1); MYELOCYTES 1 % (0-0); NEUTROPHIL # MANUAL DIFF 12.2 TH/MM3 (1.8-7.7); POLYS (SEG NEUTROPHILS) 80 % (16-70); WBC DIFF SAMPLE 100
[2017-08-15 07:45] LABS: OVALOCYTES 1+ (NORMAL); PLATELET ESTIMATE SMEAR HIGH (NORMAL); PLATELET MORPHOLOGY NORMAL (NORMAL); SCAN/DIFF FINAL DIFF MANUAL; TEARDROP RBCS 1+ (NORMAL)
[2017-08-15] MEDS: INSULIN ASPART SUPPLEMENTAL SCALE SQ SCH ×4 (08:00→22:45)
[2017-08-15] MEDS: DOCUSATE SODIUM 50 MG/SENNA 8.6 MG TAB PO SCH ×2 (08:08→22:43)
[2017-08-15] MEDS: CLOPIDOGREL 75 MG TAB PO SCH (08:08)
[2017-08-15] MEDS: guaiFENesin/CODEINE SYRUP 200 MG/20 MG/10 ML CUP PO PRN ×2 (08:09→17:58)
[2017-08-15] MEDS: RIVAROXABAN 10 MG TAB PO SCH (08:09)
[2017-08-15] MEDS: HYDROXYUREA 500 MG CAP PO SCH (08:11)
[2017-08-15] MEDS: SODIUM CHLORIDE 0.9% FLUSH 10 ML FLUSH IV FLUSH SCH ×2 (08:12→22:44)
[2017-08-15] MEDS: FLECAINIDE ACETATE 100 MG TAB PO SCH ×2 (08:17→22:44)
--- NOTE | 2017-08-15 11:33 | HHI.PR ---
Subjective Remarks The patient said that her wheezing is better. She says she still has a lot of shortness of breath and has been coughing a lot. She says her cough kept her up at night. She describes a headache, neck ache from coughing as well as chest and abdominal pain from coughing. Her family was at the bedside. Objective Vitals Vital Signs Date Time Temp Pulse Resp B/P (MAP) Pulse Ox O2 Delivery O2 Flow Rate FiO2 08/15/17 07:50 97.8 94 20 149/91 (110) 94 08/15/17 07:31 96 21 08/15/17 00:00 98.9 96 20 121/74 (90) 96 08/14/17 20:00 97.6 106 20 156/86 (109) 97 08/14/17 19:58 93 21 08/14/17 17:42 97.4 77 20 145/85 (105) 98 08/14/17 17:18 86 20 129/89 (102) 94 08/14/17 16:11 96 21 08/14/17 14:48 Room Air 08/14/17 14:48 82 20 130/66 (87) 98 Room Air 08/14/17 13:17 86 20 141/67 (91) 98 Room Air 08/14/17 12:44 Room Air 08/14/17 12:44 99 Room Air 08/14/17 12:14 20 100 Room Air 08/14/17 11:54 98.6 84 16 139/69 (92) 98 I/O 08/14/17 08/14/17 08/14/17 08/15/17 08/15/17 08/15/17 07:00 15:00 23:00 07:00 15:00 23:00 Intake Total 240 ml Output Total 300 ml Balance -300 ml 240 ml Intake Oral 240 ml Output Urine Total 300 ml # Voids 5 # Bowel Movements 0 Result Diagram: 08/15/17 0547 08/15/17 [address] Angiography 08/14/17 1347 Signed Impressions: Service Date/Time: Monday, August 14, 2017 14:22 - CONCLUSION: The study is negative for pulmonary embolism. Sam Campbell MD Chest X-Ray 08/14/17 1223 Signed Impressions: Service Date/Time: Monday, August 14, 2017 13:18 - CONCLUSION: The lungs are clear. No infiltrates seen. aSm Campbell MD Objective Remarks GENERAL: Well-developed, well-nourished, in no acute distress. HEENT: Head is normocephalic without any lesions or masses noted. Facial features are symmetric. Eyes: Pupils equal round reactive to light. Extraocular muscles are intact. Conjunctivae were clear. Oropharyngeal: Pharynx without any erythema edema. Tongue is midline without deviation. Buccal mucosa is moist without any masses or lesions NECK: Supple without any masses. Trachea midline no deviation. No JVD, no bruits are appreciated CARDIAC: Regular rhythm, regular rate. S1/S2 are heard. No murmurs gallops or rubs. LUNGS: Coarse wheezes noted throughout lung kaiser. No rhonchi or rales. ABDOMEN: Soft, nontender. Nondistended. Bowel sounds heard in all 4 quadrants. No organomegaly or masses. Negative rebound, negative guarding. EXTREMITIES: No edema, pulses are equal bilaterally. No cyanosis or clubbing. NEUROLOGY: Mood and affect appear appropriate. Cranial nerves II through XII grossly intact. Weakness noted in right extremities. PSYCH: Anxious. Medications and IVs Current Medications Medications (Trade) Dose Ordered Sig/Walter Route Start Time Stop Time Status Last Admin (Plavix) 75 mg DAILY PO 08/15/17 09:00 08/15/17 08:08 (Tambocor) 50 mg BID PO 08/14/17 21:00 08/15/17 08:17 (Hydrea) 500 mg DAILY PO 08/15/17 09:00 08/15/17 08:11 (Xarelto) 10 mg DAILY PO 08/15/17 09:00 08/15/17 08:09 (Ambien) 5 mg HS PRN PO 08/14/17 15:45 08/14/17 20:48 (NS Flush) 2 ml UNSCH PRN IV FLUSH 08/14/17 15:45 (NS Flush) 2 ml BID IV FLUSH 08/14/17 21:00 08/15/17 08:12 (Tylenol) 650 mg Q4H PRN PO 08/14/17 15:45 (Zofran Inj) 4 mg Q6H PRN IVP 08/14/17 15:45 (Tylenol) 650 mg Q6H PRN PO 08/14/17 15:45 (Roxicodone) 10 mg Q4H PRN PO 08/14/17 15:45 08/15/17 08:09 (Roxicodone) 5 mg Q4H PRN PO 08/14/17 15:45 08/14/17 20:48 (Narcan Inj) 0.4 mg UNSCH PRN IV PUSH 08/14/17 15:45 (Anuja-Colace) 1 tab BID PO 08/14/17 21:00 08/15/17 08:08 (SoluMEDROL INJ) 40 mg Q8H IV PUSH 08/14/17 21:00 08/15/17 04:42 (Pill Splitter) 1 ea UNSCH PRN OTHER 08/14/17 15:45 (Duoneb Neb) 1 ampule Q2HR NEB PRN NEB 08/14/17 16:00 08/15/17 04:18 (Duoneb Neb) 1 ampule Q6HR WHILE AWAKE NEB NEB 08/14/17 20:00 08/15/17 07:27 (Robitussin Ac 200-20 Mg/10 ml Liq) 10 ml Q6H PRN PO 08/14/17 16:45 08/15/17 08:09 Miscellaneous Information HOLD METFORMIN FOR... Q24H .XX 08/14/17 14:25 08/16/17 14:24 (NovoLOG SUPPLEMENTAL SCALE) 1 ACHS SLIDING SCALE SQ 08/14/17 21:00 08/15/17 08:00 (Levemir Inj) 20 units Q12HR SQ 08/15/17 11:45 UNV A/P Problem List: (1) Asthma exacerbation ICD Code: J45.901 - Unspecified asthma with (acute) exacerbation Status: Acute Assessment and Plan Asthmatic bronchitis with acute exacerbation Influenza testing is negative. 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 Diffuse wheezing still persists. - Continue duo nebs. - Continue Solu-Medrol 40 mg IV every 8 hours. - Obtain sputum culture. - Started Robitussin-AC. - encourage ambulation - consult pulmonology. - incentive spirometry. Diabetes Anticipate glucose to worsen with use of steroids. - Accu-Cheks with sliding scale insulin - adjust regimen as needed. Levemir 20 units BID added. Add aspart 5 units TIDAC. History of CVA Stable. - Continue Xarelto, Plavix. - PT/ OT. Thrombocytosis The pt follows with hematology. - continue hydroxyurea. - follow CBC. DVT prevention Subcutaneous Lovenox Discharge Planning Awaiting improvement Thee Patel DO Aug 15, 2017 11:33
[2017-08-15] MEDS: INSULIN DETEMIR 100 UNITS/ML VIAL SQ SCH ×2 (11:45→22:44)
[2017-08-15] MEDS: INSULIN ASPART 1,000 UNITS/10 ML VIAL SQ SCH ×2 (12:52→17:00)
[2017-08-15 17:30] LABS: BLOOD GAS BASE EXCESS 0.4 mmol/L (-2-2); BLOOD GAS CARBOXYHEMOGLOBIN 1.9 % (0-4); BLOOD GAS HCO3 24 mmol/L (22-26); BLOOD GAS METHEMOGLOBIN 1.6 % (0-2); BLOOD GAS O2 HGB SATURATION 92 % (90-100); BLOOD GAS OXYGEN CONTENT 14.3 Vol % (12.0-20.0); BLOOD GAS PCO2 37 mmHg (38-42); BLOOD GAS PO2 75 mmHg (61-120); CRITICAL VALUE NO; DRAW SITE RT RADIAL; FIO2 21 %; NUMBER OF ARTERIAL PUNCTURES 1; OXYGEN DEVICE RA; ULNAR PULSE PRESENT
[2017-08-15 17:31] LABS: STAT NO
[2017-08-15] MEDS: ZOLPIDEM TARTRATE 5 MG TAB PO PRN (22:43)
[2017-08-15] MEDS: CEFUROXIME AXETIL 500 MG TAB PO SCH (22:43)
[2017-08-16] VITALS (7 sets, daily range): BP systolic 127–148; BP diastolic 63–81; PULSE 75–96; RESP 16–20; TEMP 97.8–98.6; O2SAT 93–97
[2017-08-16] MEDS: methylPREDNISolone SOD SUCC 40 MG/1 ML VIAL IV PUSH SCH ×3 (04:02→20:08)
[2017-08-16] MEDS: RESP: ALBUTEROL 2.5 MG/IPRATROPIUM 0.5 MG NEB (SCH) NEB ×3 (07:37→20:28)
[2017-08-16] MEDS: INSULIN ASPART 1,000 UNITS/10 ML VIAL SQ SCH ×3 (08:29→16:37)
[2017-08-16] MEDS: INSULIN DETEMIR 100 UNITS/ML VIAL SQ SCH ×2 (08:30→20:09)
[2017-08-16] MEDS: INSULIN ASPART SUPPLEMENTAL SCALE SQ SCH ×4 (08:30→20:09)
--- NOTE | 2017-08-16 08:32 | MB ---
cc: TIP WHELAN M.D. DATE OF CONSULTATION 08/15/2017 REASON FOR CONSULTATION Exacerbation asthma. HISTORY OF PRESENT ILLNESS The patient is a 67-year-old female with known history of bronchial asthma. She does have a history of hypertension, hyperlipidemia and a previous CVA complaining of shortness of breath, chest wheeze, progressively worse over a two week period requiring a visit to her primary care physician prescribing steroids, antibiotics without improvement and a visit to the ER on 07/2017 with treatment for same. Again with worsening symptoms for which she was hospitalized. CT angiogram was done without evidence of pulmonary emboli. The patient has a cough, small amount of whitish sputum. No fever or chills. No hemoptysis. Continues to have significant wheezing and congestion. PAST MEDICAL HISTORY Her past medical history is that of: 1. Hypertension. 2. Hyperlipidemia. 3. Bronchial asthma and probably COPD component. 4. Diabetes mellitus. 5. Previous cerebrovascular accident. 6. Thrombocytosis. 7. Removed a brain tumor in the past. 8. She has a SPOT WELDER shunt in place. 9. Previous hernia repair. 10. Tubal ligation. 11. Appendectomy. 12. Cholecystectomy. MEDICATIONS At home include: 1. Hydrea. 2. Ambien. 3. Janumet. 4. Flecainide. 5. Xarelto. 6. Plavix. 7. Insulin. 8. Inhaled Albuterol. 9. Has been on steroids and antibiotics recently. ALLERGIES ASPIRIN. FAMILY HISTORY Positive for malignancy, heart disease. No family history of asthma. SOCIAL HISTORY Smoked pack a day for over 20 years, has not smoked in 25 years. Does not drink any alcohol. Does not use drugs. REVIEW OF SYSTEMS 12-point review of systems as per HPI and past history otherwise negative. PHYSICAL EXAMINATION GENERAL: On exam the patient is alert. VITAL SIGNS: Temperature 97, pulse 80, respirations 18, blood pressure 140/70. Oxygen saturation 96% on room air. HEENT: Exam unremarkable. Eyes without icterus. NECK: Without adenopathy or thyroid enlargement. Central trachea. CHEST: Scattered rhonchi, wheeze bilaterally. CARDIOVASCULAR: Cardiac exam PMI not appreciated. S1-S2 audible. No murmur or rub. ABDOMEN: Lax. Audible bowel sounds. EXTREMITIES: No clubbing, cyanosis. Skin: Normal. No lymphadenopathy. LABORATORY DATA White count 7.4, hemoglobin 10, hematocrit 32, platelets at 680,000. Sodium 135, potassium 4.0, BUN 12, creatinine 0.5. IMAGING CT angiogram without evidence of pulmonary emboli. No emphysematous change noted. IMPRESSION 1. Asthma exacerbation suspect COPD component. 2. Diabetes mellitus. 3. Hypertension. 4. Hyperlipidemia. 5. CVA by history as above. PLAN The patient will be maintained on oxygen therapy as needed. Oxygenation is quite adequate at present. Inhaled bronchodilator therapy, intravenous steroid therapy would be appropriate. We will follow the course along with her and depending on progress proceed further. Baseline arterial blood gas and spirometric exam will be obtained. Tip Whelan MD WWW/ARI /4:32 PM /8:26 AM
[2017-08-16] MEDS: DOCUSATE SODIUM 50 MG/SENNA 8.6 MG TAB PO SCH ×2 (09:57→20:09)
[2017-08-16] MEDS: FLECAINIDE ACETATE 100 MG TAB PO SCH ×2 (09:57→20:22)
[2017-08-16] MEDS: RIVAROXABAN 10 MG TAB PO SCH (09:58)
[2017-08-16] MEDS: SODIUM CHLORIDE 0.9% FLUSH 10 ML FLUSH IV FLUSH SCH ×2 (09:58→20:09)
[2017-08-16] MEDS: CLOPIDOGREL 75 MG TAB PO SCH (09:59)
[2017-08-16] MEDS: CEFUROXIME AXETIL 500 MG TAB PO SCH ×2 (10:00→20:08)
[2017-08-16] MEDS: HYDROXYUREA 500 MG CAP PO SCH (10:00)
--- NOTE | 2017-08-16 15:59 | HHI.PR ---
Subjective Remarks The patient says her breathing is much better. She says she has a headache that is also hurting her eyes. She says she is constipated. She would like to go home tomorrow. She was working with therapy. Discussed with nursing. Objective Vitals Vital Signs Date Time Temp Pulse Resp B/P (MAP) Pulse Ox O2 Delivery O2 Flow Rate FiO2 08/16/17 12:00 97.8 75 20 129/77 (94) 96 08/16/17 08:00 98.3 75 20 148/77 (100) 93 08/16/17 07:39 93 21 08/16/17 00:00 97.8 96 18 127/67 (87) 94 08/15/17 21:55 95 21 08/15/17 20:00 99.3 98 18 144/78 (100) 95 I/O 08/15/17 08/15/17 08/15/17 08/16/17 08/16/17 08/16/17 07:00 15:00 23:00 07:00 15:00 23:00 Intake Total 240 ml 240 ml 480 ml 100 ml Balance 240 ml 240 ml 480 ml 100 ml Intake Oral 240 ml 240 ml 480 ml 100 ml # Voids 5 5 3 # Bowel Movements 0 0 0 Result Diagram: 08/15/17 0547 08/15/[address] Angiography 08/14/17 1347 Signed Impressions: Service Date/Time: Monday, August 14, 2017 14:22 - CONCLUSION: The study is negative for pulmonary embolism. Sam Campbell MD Chest X-Ray 08/14/17 1223 Signed Impressions: Service Date/Time: Monday, August 14, 2017 13:18 - CONCLUSION: The lungs are clear. No infiltrates seen. Sam Campbell MD Objective Remarks GENERAL: Well-developed, well-nourished, in no acute distress. HEENT: Head is normocephalic without any lesions or masses noted. Facial features are symmetric. Eyes: Pupils equal round reactive to light. Extraocular muscles are intact. Conjunctivae were clear. Oropharyngeal: Pharynx without any erythema edema. Tongue is midline without deviation. Buccal mucosa is moist without any masses or lesions. NECK: Supple without any masses. Trachea midline no deviation. No JVD, no bruits are appreciated. CARDIAC: Regular rhythm, regular rate. S1/S2 are heard. No murmurs gallops or rubs. LUNGS: Coarse wheezes noted throughout lung kaiser, improved. No rhonchi or rales. ABDOMEN: Soft, nontender. Nondistended. Bowel sounds heard in all 4 quadrants. No organomegaly or masses. Negative rebound, negative guarding. EXTREMITIES: No edema, pulses are equal bilaterally. No cyanosis or clubbing. NEUROLOGY: Cranial nerves II through XII grossly intact. Weakness noted in right extremities. PSYCH: Mood and affect appropriate. Medications and IVs Current Medications Medications (Trade) Dose Ordered Sig/Walter Route Start Time Stop Time Status Last Admin (Plavix) 75 mg DAILY PO 08/15/17 09:00 08/16/17 09:59 (Tambocor) 50 mg BID PO 08/14/17 21:00 08/16/17 09:57 (Hydrea) 500 mg DAILY PO 08/15/17 09:00 08/16/17 10:00 (Xarelto) 10 mg DAILY PO 08/15/17 09:00 08/16/17 09:58 (Ambien) 5 mg HS PRN PO 08/14/17 15:45 08/15/17 22:43 (NS Flush) 2 ml UNSCH PRN IV FLUSH 08/14/17 15:45 (NS Flush) 2 ml BID IV FLUSH 08/14/17 21:00 08/16/17 09:58 (Tylenol) 650 mg Q4H PRN PO 08/14/17 15:45 (Zofran Inj) 4 mg Q6H PRN IVP 08/14/17 15:45 (Tylenol) 650 mg Q6H PRN PO 08/14/17 15:45 08/16/17 15:44 (Roxicodone) 10 mg Q4H PRN PO 08/14/17 15:45 08/16/17 10:07 (Roxicodone) 5 mg Q4H PRN PO 08/14/17 15:45 08/14/17 20:48 (Narcan Inj) 0.4 mg UNSCH PRN IV PUSH 08/14/17 15:45 (Anuja-Colace) 1 tab BID PO 08/14/17 21:00 08/16/17 09:57 (SoluMEDROL INJ) 40 mg Q8H IV PUSH 08/14/17 21:00 08/16/17 13:31 (Pill Splitter) 1 ea UNSCH PRN OTHER 08/14/17 15:45 (Duoneb Neb) 1 ampule Q2HR NEB PRN NEB 08/14/17 16:00 08/15/17 04:18 (Duoneb Neb) 1 ampule Q6HR WHILE AWAKE NEB NEB 08/14/17 20:00 08/16/17 14:26 (Robitussin Ac 200-20 Mg/10 ml Liq) 10 ml Q6H PRN PO 08/14/17 16:45 08/15/17 17:58 (NovoLOG SUPPLEMENTAL SCALE) 1 ACHS SLIDING SCALE SQ 08/14/17 21:00 08/16/17 13:31 (NovoLOG INJ) 5 units TIDAC SQ 08/15/17 12:00 08/16/17 13:30 (Ceftin) 500 mg Q12HR PO 08/15/17 21:00 08/16/17 10:00 (Levemir Inj) 30 units Q12HR SQ 08/16/17 21:00 A/P Problem List: (1) Asthma exacerbation ICD Code: J45.901 - Unspecified asthma with (acute) exacerbation Status: Acute Assessment and Plan Asthmatic bronchitis with acute exacerbation Influenza testing is negative. 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 Diffuse wheezing is improved. Pulmonology consult appreciated. - Continue duo nebs. - Continue Solu-Medrol, wean to prednisone in AM. - Obtain sputum culture. - Started Robitussin-AC. - encourage ambulation - incentive spirometry. Diabetes Glycemic control worse with use of steroids. - Accu-Cheks with sliding scale insulin - adjust regimen as needed. Levemir 30 units BID added. Add aspart 8 units TIDAC. History of CVA Stable. - Continue Xarelto, Plavix. - PT/ OT. Thrombocytosis The pt follows with hematology. - continue hydroxyurea. - follow CBC. Headache With eye pressure. - trial of Fioricet. DVT prevention Subcutaneous Lovenox Discharge Planning Awaiting improvement. Possible d/c in AM Thee Patel DO Aug 16, 2017 15:59
[2017-08-16] MEDS ORDERED: INSULIN DETEMIR 100 UNITS/ML VIAL SQ SCH (16:00)
[2017-08-16] MEDS ORDERED: ACETAMIN 325 MG/BUTALBITAL 50 MG/CAFFEINE 40 MG TAB PO ONE (16:00)
--- NOTE | 2017-08-16 16:06 | HHI.PR ---
Subjective Remarks alert less sob Objective Laboratory Tests Test 08/14/17 12:55 08/14/17 14:40 08/15/17 05:47 08/15/17 17:20 Red Blood Count 3.22 MIL/MM3 (4.00-5.30) 3.15 MIL/MM3 (4.00-5.30) Hemoglobin 10.3 GM/DL (11.6-15.3) 10.0 GM/DL (11.6-15.3) Hematocrit 32.0 % (35.0-46.0) 31.5 % (35.0-46.0) Red Cell Distribution Width 17.6 % (11.6-17.2) 18.0 % (11.6-17.2) Platelet Count 680 TH/MM3 (150-450) 537 TH/MM3 (150-450) Neutrophils % (Manual) 71 % (16-70) 80 % (16-70) Nucleated Red Blood Cells 1 /100 WBC (0-0) Blastocytes 1 % (0-0) Toxic Granulation 1+ (NORMAL) Platelet Estimate HIGH (NORMAL) HIGH (NORMAL) Basophilic Stippling MOD (NORMAL) Ovalocytes 1+ (NORMAL) 1+ (NORMAL) Rouleau PRESENT (NORMAL) Random Glucose 225 MG/DL (74-106) 352 MG/DL (74-106) Calcium Level 8.3 MG/DL (8.5-10.1) Total Bilirubin 1.1 MG/DL (0.2-1.0) 1.3 MG/DL (0.2-1.0) Sodium Level 135 MEQ/L (136-145) 135 MEQ/L (136-145) Troponin I LESS THAN 0.02 NG/ML Urine Glucose (UA) 500 mg/dL (NEG) White Blood Count 13.5 TH/MM3 (4.0-11.0) Mean Corpuscular Volume 100.1 FL (80.0-100.0) Mean Corpuscular Hemoglobin Concent 31.8 % (32.0-36.0) Lymphocytes % 8 % (9-44) Neutrophils # (Manual) 12.2 TH/MM3 (1.8-7.7) Metamyelocytes 4 % (0-1) Myelocytes 1 % (0-0) Tear Drop Cells 1+ (NORMAL) Arterial Blood pH 7.43 (7.380-7.420) Arterial Blood Partial Pressure CO2 37 mmHg (38-42) Blood Gas Hemoglobin 11.0 G/DL (12.0-16.0) Vital Signs Date Time Temp Pulse Resp B/P (MAP) Pulse Ox O2 Delivery O2 Flow Rate FiO2 08/16/17 12:00 97.8 75 20 129/77 (94) 96 08/16/17 08:00 98.3 75 20 148/77 (100) 93 08/16/17 07:39 93 21 08/16/17 00:00 97.8 96 18 127/67 (87) 94 08/15/17 21:55 95 21 08/15/17 20:00 99.3 98 18 144/78 (100) 95 I/O 08/15/17 08/15/17 08/15/17 08/16/17 08/16/17 08/16/17 07:00 15:00 23:00 07:00 15:00 23:00 Intake Total 240 ml 240 ml 480 ml 100 ml Balance 240 ml 240 ml 480 ml 100 ml Intake Oral 240 ml 240 ml 480 ml 100 ml # Voids 5 5 3 # Bowel Movements 0 0 0 Result Diagram: 08/15/17 0547 08/15/17 0547 Objective Remarks GENERAL: SKIN: Warm and dry. HEAD: Atraumatic. Normocephalic. EYES: Pupils equal and round. No scleral icterus. No injection or drainage. ENT: No nasal bleeding or discharge. Mucous membranes pink and moist. NECK: Trachea midline. No JVD. CARDIOVASCULAR: Regular rate and rhythm. RESPIRATORY: No accessory muscle use. Clear to auscultation. Breath sounds equal bilaterally. GASTROINTESTINAL: Abdomen soft, non-tender, nondistended. Hepatic and splenic margins not palpable. MUSCULOSKELETAL: Extremities without clubbing, cyanosis, or edema. No obvious deformities. NEUROLOGICAL: Awake and alert. No obvious cranial nerve deficits. Motor grossly within normal limits. Five out of 5 muscle strength in the arms and legs. Normal speech. PSYCHIATRIC: Appropriate mood and affect; insight and judgment normal. Assessment and Plan Assessment and Plan asthma exacerbation improved DM HTN HDL PLAN O2 NEEDED BRONCHODILATOR THERAPY CHECK PFT INCREASE ACTIVITY HOME AM IF STABLE Tip Whelan MD Aug 16, 2017 16:06
[2017-08-16] MEDS: POLYETHYLENE GLYCOL 17 GM PKG PO SCH (16:36)
[2017-08-16] MEDS: guaiFENesin/CODEINE SYRUP 200 MG/20 MG/10 ML CUP PO PRN (20:22)
[2017-08-16] MEDS: ZOLPIDEM TARTRATE 5 MG TAB PO PRN (21:13)
[2017-08-17] VITALS: BP 134/79; PULSE 79; RESP 20; TEMP 97.4; O2SAT 96
[2017-08-17 07:45] VITALS: O2SAT 97
[2017-08-17 08:00] VITALS: BP 137/80; PULSE 63; RESP 20; TEMP 97.9; O2SAT 95
[2017-08-17] MEDS: RESP: ALBUTEROL 2.5 MG/IPRATROPIUM 0.5 MG NEB (SCH) NEB ×2 (08:00→13:49)
[2017-08-17] MEDS: POLYETHYLENE GLYCOL 17 GM PKG PO SCH (08:12)
[2017-08-17] MEDS: RIVAROXABAN 10 MG TAB PO SCH (08:12)
[2017-08-17] MEDS: FLECAINIDE ACETATE 100 MG TAB PO SCH (08:12)
[2017-08-17] MEDS: CEFUROXIME AXETIL 500 MG TAB PO SCH (08:13)
[2017-08-17] MEDS: methylPREDNISolone SOD SUCC 40 MG/1 ML VIAL IV PUSH SCH (08:13)
[2017-08-17] MEDS: DOCUSATE SODIUM 50 MG/SENNA 8.6 MG TAB PO SCH (08:13)
[2017-08-17] MEDS: SODIUM CHLORIDE 0.9% FLUSH 10 ML FLUSH IV FLUSH SCH (08:13)
[2017-08-17] MEDS: CLOPIDOGREL 75 MG TAB PO SCH (08:13)
[2017-08-17] MEDS: HYDROXYUREA 500 MG CAP PO SCH (08:17)
[2017-08-17] MEDS ORDERED: NON-FORMULARY DRUG (Sitagliptin-Metformin (Janumet) 1 TAB) PO SCH (09:00)
[2017-08-17] MEDS ORDERED: metFORMIN HCL 500 MG TAB PO SCH (09:00)
[2017-08-17] MEDS: INSULIN DETEMIR 100 UNITS/ML VIAL SQ SCH (09:09)
[2017-08-17] MEDS: INSULIN ASPART 1,000 UNITS/10 ML VIAL SQ SCH ×2 (09:09→11:52)
[2017-08-17] MEDS: INSULIN ASPART SUPPLEMENTAL SCALE SQ SCH ×2 (09:09→11:53)
[2017-08-17] MEDS ORDERED: GUAI100S5 PO (11:25)
[2017-08-17] MEDS ORDERED: PRED10PA PO (11:25)
[2017-08-17] MEDS ORDERED: PERC5TAB12 PO (11:25)
[2017-08-17] MEDS ORDERED: CEFU1TAB20 PO (11:25)
--- NOTE | 2017-08-17 11:28 | HHI.DCPOC ---
Discharge Care Plan Diagnosis: (1) Poorly controlled diabetes mellitus (2) Asthma exacerbation Goals to Promote Your Health * To prevent worsening of your condition and complications * To maintain your health at the optimal level Directions to Meet Your Goals Take your medications as prescribed Follow your dietary instruction Follow activity as directed Keep your appointments as scheduled Take your immunizations and boosters as scheduled If your symptoms worsen call your PCP, if no PCP go to Urgent Care Center or Emergency Room Smoking is Dangerous to Your Health. Avoid second hand smoke Call the 24-hour hour crisis hotline for domestic abuse at Thee Patel DO Aug 17, 2017 11:28
--- NOTE | 2017-08-17 11:35 | HHI.DS ---
Discharge Summary Admission Date Aug 14, 2017 at 15:05 Discharge Date: Aug 17, 2017 Admitting Diagnosis ASTHMA EXACERBATION (1) Asthma exacerbation ICD Code: J45.901 - Unspecified asthma with (acute) exacerbation Diagnosis: Principal Status: Acute (2) Poorly controlled diabetes mellitus ICD Code: E11.65 - Type 2 diabetes mellitus with hyperglycemia Diagnosis: Principal Procedures None Brief History - From Admission Written by Sheldon Hastings, acting as scribe for Dr. Patel on 08/14/17 at 16 :31. 67-year-old female with known history of hypertension, hyperlipidemia, history of CVA, asthma who presented to hospital because of shortness breath, cough, congestion. Patient states that her symptoms started a month ago and she had been using her inhalers and nebulizer at home without any significant improvement. She went to her primary medical doctor's office one week ago and was started on prednisone and told to continue her nebulizer treatments. Patient did not improve so she came went to the emergency department on 08/10/17 , during the stay the patient was given 3 nebulizer treatments, IV Solu-Medrol with improvement of her respiratory status. She was discharged home on prednisone and follow-up with her primary medical doctor. Patient states that she did not improve and she continued to have short of breath, dyspnea so she came back to the hospital for evaluation. Patient had workup done by emergency room physician who gave the patient 3 nebulizer treatments without any significant improvement of her wheezing. Because she didn't respond to ER treatment is recommended by ER physician that she be admitted for further evaluation and management. Patient states that she has had wheezing over the last month. She has had a cough with green phlegm production. She denies any chest pain, nausea, vomiting, diaphoresis, abdominal pain, diarrhea, constipation. CBC/BMP: 08/15/17 0547 08/16/17 1605 Significant Findings Laboratory Tests Test 08/14/17 12:55 08/14/17 14:40 08/15/17 05:47 08/15/17 17:20 Red Blood Count 3.22 MIL/MM3 (4.00-5.30) 3.15 MIL/MM3 (4.00-5.30) Hemoglobin 10.3 GM/DL (11.6-15.3) 10.0 GM/DL (11.6-15.3) Hematocrit 32.0 % (35.0-46.0) 31.5 % (35.0-46.0) Red Cell Distribution Width 17.6 % (11.6-17.2) 18.0 % (11.6-17.2) Platelet Count 680 TH/MM3 (150-450) 537 TH/MM3 (150-450) Neutrophils % (Manual) 71 % (16-70) 80 % (16-70) Nucleated Red Blood Cells 1 /100 WBC (0-0) Blastocytes 1 % (0-0) Toxic Granulation 1+ (NORMAL) Platelet Estimate HIGH (NORMAL) HIGH (NORMAL) Basophilic Stippling MOD (NORMAL) Ovalocytes 1+ (NORMAL) 1+ (NORMAL) Rouleau PRESENT (NORMAL) Random Glucose 225 MG/DL (74-106) 352 MG/DL (74-106) Calcium Level 8.3 MG/DL (8.5-10.1) Total Bilirubin 1.1 MG/DL (0.2-1.0) 1.3 MG/DL (0.2-1.0) Sodium Level 135 MEQ/L (136-145) 135 MEQ/L (136-145) Troponin I LESS THAN 0.02 NG/ML Urine Glucose (UA) 500 mg/dL (NEG) White Blood Count 13.5 TH/MM3 (4.0-11.0) Mean Corpuscular Volume 100.1 FL (80.0-100.0) Mean Corpuscular Hemoglobin Concent 31.8 % (32.0-36.0) Lymphocytes % 8 % (9-44) Neutrophils # (Manual) 12.2 TH/MM3 (1.8-7.7) Metamyelocytes 4 % (0-1) Myelocytes 1 % (0-0) Tear Drop Cells 1+ (NORMAL) Arterial Blood pH 7.43 (7.380-7.420) Arterial Blood Partial Pressure CO2 37 mmHg (38-42) Blood Gas Hemoglobin 11.0 G/DL (12.0-16.0) Test 08/16/17 16:05 Estimat Glomerular Filtration Rate 57 ML/MIN (>89) Imaging Last Impressions CT Angiography 08/14/17 1347 Signed Impressions: Service Date/Time: Monday, August 14, 2017 14:22 - CONCLUSION: The study is negative for pulmonary embolism. Sam Campbell MD Chest X-Ray 08/14/17 1223 Signed Impressions: Service Date/Time: Monday, August 14, 2017 13:18 - CONCLUSION: The lungs are clear. No infiltrates seen. Sam Campbell MD PE at Discharge GENERAL: Well-developed, well-nourished, in no acute distress. HEENT: Head is normocephalic without any lesions or masses noted. Facial features are symmetric. Eyes: Pupils equal round reactive to light. Extraocular muscles are intact. Conjunctivae were clear. Oropharyngeal: Pharynx without any erythema edema. Tongue is midline without deviation. Buccal mucosa is moist without any masses or lesions. NECK: Supple without any masses. Trachea midline no deviation. No JVD, no bruits are appreciated. CARDIAC: Regular rhythm, regular rate. S1/S2 are heard. No murmurs gallops or rubs. LUNGS: Coarse wheezes noted throughout lung kaiser, improved. No rhonchi or rales. ABDOMEN: Soft, nontender. Nondistended. Bowel sounds heard in all 4 quadrants. No organomegaly or masses. Negative rebound, negative guarding. EXTREMITIES: No edema, pulses are equal bilaterally. No cyanosis or clubbing. NEUROLOGY: Cranial nerves II through XII grossly intact. Weakness noted in right extremities. PSYCH: Mood and affect appropriate. Pt update on day of discharge The patient was feeling well and wanted to go home. She had questions about follow-up and her prescriptions. Discussed with nursing. Hospital Course Asthmatic bronchitis with acute exacerbation Influenza testing was negative. She presented with diffuse wheezing. Pulmonology was consulted. She was continued on Duonebs and IV Solu-Medrol. A sputum culture was requested. She was started on Ceftin. She was started on Robitussin-AC for her cough. We encouraged ambulation. She used incentive spirometry. She will complete a prednisone taper and a course of Ceftin. She will also be discharged with an albuterol inhaler. She will follow up with pulmonology as an outpt. Diabetes Glucose level was uncontrolled with use of steroids. She was placed on Accu- Cheks with sliding scale insulin. We adjusted her insulin regimen to Levemir 30 units BID and aspart 8 units TIDAC. She will resume her home regimen upon discharge. She will continue to be weaned off of steroids. History of CVA She was continued on her home Xarelto and Plavix. She worked with PT/ OT and was cleared for discharge. Headache With eye pressure. Improved with a trial of Fioricet. Pt Condition on Discharge: Stable Discharge Disposition: Discharge Home Discharge Time: > 30 minutes Discharge Instructions DIET: Follow Instructions for: Diabetic Diet Activities you can perform: Regular-No Restrictions Follow up Referrals: PCP Follow-up - 1 Week Pulmonology - 1 Week with Tip Whelan MD New Medications: Albuterol 8.5 GM Inh (Proair Hfa 8.5 GM Inh) 90 Mcg/Act Aer 2 PUFF INH Q4-6H PRN for SHORTNESS OF BREATH, #1 INHALER 0 Refills 108 mcg/actuation Guaifenesin-Codeine Liq (Guaifenesin-Codeine Liq) 100-10 Mg/5 Ml Soln 5 ML PO Q4H PRN for COUGH, #1 BOTTLE 0 Refills Prednisone (21) 10 mg tab Dose Pack (Prednisone (21) 10 mg tab Dose Pack) 10 Mg Pack 10 MG PO DIRECTED for Inflammation, #1 DSPK 0 Refills Cefuroxime (Cefuroxime) 500 Mg Tab 500 MG PO Q12HR for Broncospasm for 4 Days, TAB Changed Medications: Oxycodone-Acetaminophen (Percocet) 5-325 mg Tab 1-2 TAB PO Q6H PRN for PAIN SCALE 1 TO 10, #10 TAB 0 Refills (Changed from: 20) Continued Medications: Clopidogrel (Plavix) 75 Mg Tab 75 MG PO DAILY for Blood Clot Prevention, #30 TAB 0 Refills Flecainide (Flecainide) 50 Mg Tab 50 MG PO BID for Regulate Heart Beat, #60 TAB 0 Refills Hydroxyurea (Hydrea) 500 Mg Cap 500 MG PO DAILY, CAP 0 Refills Insulin Glargine Inj (Lantus Inj) 100 Unit/Ml Inj 85 HS Rivaroxaban (Xarelto) 10 Mg Tab 10 MG PO DAILY for Blood Clot Prevention, TAB 0 Refills Sitagliptin-Metformin (Janumet) 50-500 Mg Tab 1 TAB PO BID for Blood Sugar Management, #60 TAB 0 Refills Zolpidem (Ambien) 5 Mg Tab 5 MG PO HS PRN for INSOMNIA, TAB 0 Refills Discontinued Medications: Prednisone (Prednisone) 20 Mg Tab 40 MG PO DIRECTED, #10 TAB 0 Refills Thee Patel DO Aug 17, 2017 11:35
[2017-08-17] MEDS ORDERED: ALBUAER3 INH (11:36)
[2017-08-17 12:00] VITALS: BP 135/78; PULSE 78; RESP 20; TEMP 97.8; O2SAT 98
--- NOTE | 2017-08-20 09:18 | RSPPFT ---
DATE OF PROCEDURE: 08/16/17 COMMENTS: Spirometry with FVC of 1.7, FEV1 of 1.0, FEV!/FVC ratio at 61%. A positive but non-significant response to acutely inhaled bronchodilator noted. IMPRESSION: 1. Severe airways obstruction. 2. Non-significant response to acutely inhaled bronchodilator.
== END 2017-08-17 14:13 | disposition home or self-care (01) | DRG 202 ==
LOC: PHED 10:56 → PHEDA 15:05 → PH3B 17:08
PROVIDERS: ADMIT Hospitalist; ATTEND Hospitalist
DX: J45.901 Unspecified asthma with (acute) exacerbation (principal); I69.351 Hemiplegia and hemiparesis following cerebral infarction affecting right dominant side; E11.65 Type 2 diabetes mellitus with hyperglycemia; I10 Essential (primary) hypertension; K59.00 Constipation, unspecified; F32.9 Major depressive disorder, single episode, unspecified; G47.00 Insomnia, unspecified; F41.9 Anxiety disorder, unspecified; D75.89 Other specified diseases of blood and blood-forming organs; E78.5 Hyperlipidemia, unspecified; Z98.2 Presence of cerebrospinal fluid drainage device; Z87.891 Personal history of nicotine dependence; Z79.01 Long term (current) use of anticoagulants; Z79.4 Long term (current) use of insulin
CPT/HCPCS: 36600; 71010; 71275; 80053; 81001; 82565; 82805; 82948; 83880; 84484; 85007; 85027; 87070; 87205; 87804; 93005; 94060; 94150; 94620; 94640; 94664; 96374; J1815; J2920; J2930; Q9967

== ENCOUNTER 2018-03-13 11:26 | Emergency (ER) | payer MEDICARE, MEDICAID ==
[~2018-03-13] VITALS: Ht 157.5 cm; Wt 74.0 kg
[~2018-03-13 11:26] MED LIST changes: +ALBUAER3 INH; +AMBI5TAB PO; +CEFU1TAB20 PO; -DILT31TA PO; -GLIP1TAB49 PO; +GUAI100S5 PO; +HYDR500C PO; +JANU50TA4 PO; -METF500T PO; +PRED10PA PO; -PRED20 PO
[2018-03-13 11:33] VITALS: BP 145/79; PULSE 71; RESP 16; TEMP 99; O2SAT 97
--- NOTE | 2018-03-13 12:29 | PD ---
HPI Chief Complaint: Head Injury Time Seen by Provider: 12:10 Travel History International Travel<30 days: No Contact w/Intl Traveler<30days: No Traveled to known affect area: No History of Present Illness HPI 67-year-old female presents emergency department for evaluation of headache and left eye blurriness that started 2 days ago after hitting her head 3 days ago. Says that she was bending forward and she hit a mailbox on the left upper frontal region of her face and started developing the symptoms of headache 1 day later. She says that her headache is frontal and near the back of the head near her neck, nonradiating. Mild in severity. She denies loss of consciousness or subsequent falls. She is complaining of neck pain as well that is focused in the upper cervical region. Says she has a history of a brain tumor requiring a shunt. She has not followed up with a neurologist in several years. She has not seen her primary care physician for this pain. Note that patient came into the emergency department with her as he had an emergent condition requiring care. PFSH Past Medical History Hx Anticoagulant Therapy: Yes (XARELTO) Arthritis: Yes Asthma: Yes Atrial Fibrillation: Yes Anxiety: Yes Depression: Yes Heart Rhythm Problems: No Cancer: No Cardiac Catheterization: No Cardiovascular Problems: Yes (abnormal heart beat) High Cholesterol: No Chemotherapy: Yes (CHEMO PILLS) Congestive Heart Failure: No Cerebrovascular Accident: Yes Diabetes: Yes Patient Takes Glucophage: No Diminished Hearing: No Endocrine: No Gastrointestinal Disorders: No Genitourinary: No Heparin Induced Thrombocytopen: No Hypertension: Yes Immune Disorder: No Implanted Vascular Access Dvce: No Musculoskeletal: Yes Psychiatric: No Reproductive: No Respiratory: Yes (ASTHMA) Pneumonia: Yes Menopausal: Yes : 6 Para: 4 Miscarriage: 2 Tubal Ligation: Yes Past Surgical History Abdominal Surgery: Yes (HERNIA REPAIR) Appendectomy: Yes Cholecystectomy: Yes Coronary Artery Bypass Graft: No Genitourinary Surgery: Yes (bladder "pulled up") Gynecologic Surgery: Yes (BLADDER LIFT) Hysterectomy: Yes (partial) Neurologic Surgery: Yes (BRAIN SHUNT FOR 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 BRAIN PER DAUGHTER) Other Surgery: Yes (hernia) Family History Family Myocardial Infarction: Yes (FATHER AT AGE 58 OF [place] ) Social History Alcohol Use: No Tobacco Use: No Substance Use: No Allergies-Medications (Allergen,Severity, Reaction): Coded Allergies: aspirin (Unverified Allergy, Severe, Nausea/Vomiting, 03/13/18) Reported Meds & Prescriptions Reported Meds & Active Scripts Active Proair Hfa 8.5 GM Inh (Albuterol Sulfate) 90 Mcg/Act Aer 2 Puff INH Q4-6H PRN 108 mcg/actuation Prednisone (21) 10 mg tab Dose Pack (Prednisone) 10 Mg Pack 10 Mg PO DIRECTED Percocet (Oxycodone-Acetaminophen) 5-325 mg Tab 1-2 Tab PO Q6H PRN Reported Janumet (Sitagliptin-Metformin) 50-500 Mg Tab 1 Tab PO BID Hydrea (Hydroxyurea) 500 Mg Cap 500 Mg PO DAILY Ambien (Zolpidem Tartrate) 5 Mg Tab 5 Mg PO HS PRN Flecainide (Flecainide Acetate) 50 Mg Tab 50 Mg PO BID Xarelto (Rivaroxaban) 10 Mg Tab 10 Mg PO DAILY Plavix (Clopidogrel Bisulfate) 75 Mg Tab 75 Mg PO DAILY Lantus Inj (Insulin Glargine) 100 Unit/Ml Inj 85 HS Review of Systems Except as stated in HPI: all other systems reviewed are Neg Physical Exam Narrative GENERAL: Well-nourished, well-developed patient, in NAD SKIN: Focused skin assessment warm/dry. No rashes or lesions. HEAD: Normocephalic. Atraumatic although she has some tenderness palpation to the left upper frontal and left brow EYES: No scleral icterus. No injection or drainage. PERRLA, EOMI THROAT: No pharyngeal injection, exudates, or tonsillar hypertrophy. Airway is patent. NECK: Supple, trachea midline. No JVD or lymphadenopathy. No meningismus. No obvious midline tenderness CARDIOVASCULAR: Regular rate and rhythm without murmurs, gallops, or rubs. RESPIRATORY: Breath sounds equal bilaterally. No accessory muscle use. No wheezes, rales, or rhonchi MUSCULOSKELETAL: No cyanosis, or edema. BACK: Nontender without obvious deformity. No CVA tenderness. No midline tenderness Data Data Last Documented VS Vital Signs Date Time Temp Pulse Resp B/P (MAP) Pulse Ox O2 Delivery O2 Flow Rate FiO2 03/13/18 11:33 99.0 71 16 145/79 (101) [address] Brain W/O Iv Contrast(Rout) (03/13/18 ) Ct Cerv Spine W/O Contrast (03/13/18 ) Ed Discharge Order (03/13/18 13:57) Acetaminophen (Tylenol) (03/13/18 14:00) [facility] Medical Decision Making Medical Screen Exam Complete: Yes Emergency Medical Condition: Yes Differential Diagnosis Concussion, postconcussive syndrome, ICH, SAH, skull fracture, contusion Narrative Course 67-year-old female presents emergency department for evaluation of headache and left eye blurriness that started 2 days ago after hitting her head 3 days ago. Says that she was bending forward and she hit a mailbox on the left upper frontal region of her face and started developing the symptoms of headache 1 day later. She says that her headache is frontal and near the back of the head near her neck, nonradiating. Mild in severity. She denies loss of consciousness or subsequent falls. She is complaining of neck pain as well that is focused in the upper cervical region. Says she has a history of a brain tumor requiring a shunt. She has not followed up with a neurologist in several years. She has not seen her primary care physician for this pain. Note that patient came into the emergency department with her as he had an emergent condition requiring care. Vital signs are stable. Visual acuity exam is stable. Imaging studies are stable. I discussed my findings with my attending who agreed that patient should follow- up with her neurologist. Patient requested medication for her headache. Tylenol administered. She should follow-up with her primary care physician. Return for worsening or persistent symptoms. Diagnosis Primary Impression: Concussion Qualified Codes: S06.0X0A - Concussion without loss of consciousness, initial encounter Referrals: Neurologist Primary Care Physician Additional Instructions: Return to the emergency department if you experience severe headache, personality changes, blurred vision, nausea, vomiting. Avoid excessive stimulation and activity until your symptoms resolve. Disposition: 01 DISCHARGE HOME Condition: Stable Joelle Bishop March 13, 2018 12:29
--- NOTE | 2018-03-13 13:21 | RADRPT ---
EXAM DATE: 03/13/2018 1:15 PM EDT AGE/SEX: 67 years / Female INDICATIONS: Trauma. Fell 3 days ago. Cephalgia. Blurry vision in left eye. CLINICAL DATA: This is the patient's initial encounter. Patient reports that signs and symptoms have been present for 3 days and indicates a pain score of 9/10. MEDICAL/SURGICAL HISTORY: Cerebrovascular disease. Cardiovascular disease. Diabetes mellitus type II. Hypertension. Appendectomy. Cholecystectomy. Hysterectomy. Tubal ligation. AV shunt. RADIATION DOSE: 65.61 CTDI (mGy) COMPARISON: [facility], CT BRAIN W/O CONTRAST, 08/25/2015. . TECHNIQUE: CT of the head without contrast. Using automated exposure control and adjustment of the mA and/or kV according to patient size, radiation dose was kept as low as reasonably achievable to ob tain optimal diagnostic quality images. FINDINGS: Cerebrum: The ventricles are normal for age. There continues to be a large left arachnoid cyst in t he left temporal lobe fossa. This is unchanged compared to the prior study. There is a transcranial c atheter on the left side which is unchanged in position compared to the prior study. It appears to te rminate in the left sylvian fissure. 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 No evidence of midline shift, mass lesion, hemorrhage or acute infarction. No extraaxial fluid collections are seen. Posterior Fossa: The cerebellum and brainstem are intact. The 4th ventricle is midline. The cerebe llopontine angle is unremarkable. Extracranial: The visualized portion of the orbits is intact. Skull: The calvaria is intact. No evidence of skull fracture. No significant change compared to 2014. CONCLUSION: 1. Stable CT scan of the brain compared to 2014. Specifically, no change in the large left arachnoid cyst in the left temporal lobe fossa. 2. No change in the left-sided transcranial catheter. 3. Small old cortical infarct involving the posterior right parietal lobe. 4. No focal or acute intracranial hemorrhage. Electronically signed by: Pablo Hinton MD 03/13/2018 1:19 PM EDT
--- NOTE | 2018-03-13 13:22 | RADRPT ---
EXAM DATE: 03/13/2018 1:15 PM EDT AGE/SEX: 67 years / Female INDICATIONS: Trauma. Fell 3 days ago. Cephalgia. Blurry vision in left eye. CLINICAL DATA: This is the patient's initial encounter. Patient reports that signs and symptoms have been present for 3 days and indicates a pain score of 9/10. MEDICAL/SURGICAL HISTORY: Cardiovascular disease. Cerebrovascular disease. Diabetes mellitus type II. Hypertension. Appendectomy. Cholecystectomy. Hysterectomy. AV shunt. Tubal ligation. RADIATION DOSE: 26.28 CTDI (mGy) COMPARISON: No prior [facility] exams available for comparison. TECHNIQUE: Contiguous axial images were obtained using helical multirow detector technique. The vol umetric data was post-processed with multiplanar reconstruction in oblique axial, sagittal, and coron al planes. Using automated exposure control and adjustment of the mA and/or kV according to patient s ize, radiation dose was kept as low as reasonably achievable to obtain optimal diagnostic quality mirna ges. FINDINGS: Sagittal and coronal reconstruction show mild multilevel degenerative disc disease with some loss of disc height and marginal spurring from C4-5 through C6-7. Minimal grade 1 anterolisthesis of C4 on 5, C5 on 6 and C6 on C7. Vertebral body heights are maintained without fracture. Despite degenerative c hanges, the spinal canal is widely patent throughout. Uncovertebral ridging encroaches on the anterio r epidural space at C5-6. C2-3: The bony spinal canal is normal in size. No evidence of disc bulge or herniation. The neural foramina are bilaterally patent. C3-4: The bony spinal canal is normal in size. No evidence of disc bulge or herniation. The neural foramina are bilaterally patent. C4-5: The bony spinal canal is normal in size. No evidence of disc bulge or herniation. The neural foramina are bilaterally patent. C5-6: Uncovertebral ridging encroaches on the anterior epidural space rightward. Spinal canal and ne ural foramina are adequate C6-7: The bony spinal canal is normal in size. No evidence of disc bulge or herniation. The neural foramina are bilaterally patent. C7-T1: The bony spinal canal is normal in size. No evidence of disc bulge or herniation. The neura l foramina are bilaterally patent. CONCLUSION: 1. Degenerative disc disease most prominent at C5-6 with loss of disc height and uncovertebral ridgi ng. Right-sided uncovertebral spurs encroach on the anterior epidural space but the spinal canal and neural foramina are patent at this and all remaining cervical levels. 2. No fracture. Electronically signed by: Yang Borja MD 03/13/2018 1:21 PM EDT
[2018-03-13] MEDS ORDERED: ACETAMINOPHEN 500 MG CPLT PO ONE (14:00)
== END 2018-03-13 14:17 | disposition home or self-care (01) ==
LOC: PHEFT 11:26
DX: S06.0X0A Concussion without loss of consciousness, initial encounter (principal); I48.91 Unspecified atrial fibrillation; E11.9 Type 2 diabetes mellitus without complications; I10 Essential (primary) hypertension; W22.09XA Striking against other stationary object, initial encounter; Z79.01 Long term (current) use of anticoagulants
CPT/HCPCS: 70450; 72125; 99283